=== PATIENT | female | born 1950 | race Caucasian/White ===

== ENCOUNTER → 2016-06-01 | Outpatient (CLI) | payer OTHER ==
--- NOTE | 2016-06-02 07:30 | MAMMOGRAPHY REPORT ---
BILATERAL DIGITAL SCREENING MAMMOGRAM WITH CAD: 06/01/2016 CLINICAL HISTORY: Routine screening. Patient has no complaints. TECHNIQUE: Current study was also evaluated with a Computer Aided Detection (CAD) system. Bilatera l CC and MLO views were obtained. COMPARISON: Comparison is made to exams dated: 05/31/2015 mammogram, 05/29/2014 mammogram, 05/28/2013 m ammogram, 05/27/2012 mammogram, 05/26/2011 mammogram, and 05/20/2010 mammogram - [facility]. BREAST COMPOSITION: There are scattered areas of fibroglandular density in both breasts. FINDINGS: No suspicious masses, calcifications, or areas of architectural distortion are noted in e ither breast. There has been no significant interval change compared to prior exams. IMPRESSION: ACR BI-RADS CATEGORY 1: NEGATIVE There is no mammographic evidence of malignancy. A 1 year screening mammogram is recommended. The p atient will receive written notification of the results. Approximately 10% of breast cancers are not detected with mammography. A negative mammographic repor t should not delay biopsy if a clinically suggestive mass is present. Becky Tuttle M.D. /:06/01/2016 15:11:56 Automobile Designer: Vi Munson, [facility] letter sent: Normal /2 BI-RADS Code: ACR BI-RADS Category 1: Negative
== END | disposition home or self-care (01) ==
LOC: C.MAMM 12:43
PROVIDERS: ATTEND Family Medicine
DX: Z12.31 Encounter for screening mammogram for malignant neoplasm of breast (principal)

== ENCOUNTER → 2017-01-08 | Outpatient (CLI) | payer OTHER ==
[~2017-01-08] MED LIST: ASPI81TA28 PO; CALC600T9 PO; GLUCTAB7 PO; LEVO112T4 PO; MOME100A INH; NAPR1TAB9 PO
--- NOTE | 2017-01-08 09:49 | DIAGNOSTIC IMAGING REPORT ---
LEFT KNEE INCLUDING BILATERAL STANDING AP VIEWS (4 VIEWS) CLINICAL HISTORY: LEFT KNEE PAIN COMPARISON: 11/08/2015 DISCUSSION: There are progressive osteoarthritic changes involving the left knee with progressive medial joint space narrowing and subchondral sclerosis. There are prominent dorsal patellar spurs. No acute fractures are visualized. IMPRESSION: 1. No acute fractures 2. Progressive osteoarthritic changes involving the left knee Electronically signed by: Valdez Nieves M.D. 01/08/2017 9:47 AM Dictated Date/Time: 01/08/2017 9:46 AM
== END | disposition home or self-care (01) ==
LOC: C.RDSM 09:45
PROVIDERS: ATTEND Physician Assistant
DX: M25.562 Pain in left knee (principal)

== ENCOUNTER 2017-03-14 07:55 | Inpatient (IN) | payer OTHER ==
[2017-02-12 10:32] VITALS: Ht 147.3 cm; Wt 63.1 kg
--- NOTE | 2017-02-12 11:05 | PAT Medication Instructions ---
Service Date Feb 12, 2017. Current Home Medication List Aspirin (Aspirin Ec), 81 MG PO QAM Calcium Carbonate-Vitamin D (Calcium + D), 1 TAB PO QAM Degcdjqlcrn-Zvqtyjgoxdb-Vfa C- (Glucosamine Chondroitin), 2 TAB PO QAM Levothyroxine Sodium (Levothyroxine Sodium), 1 TAB PO QAM Mometasone Furoate-Formoterol (Dulera 100/5 Mcg), 2 PUFFS INH BID Naproxen (Aleve), 220 MG PO PRN Medication Instructions For Your Scheduled Surgery - Check with surgeon for instructions: Naproxen (Aleve), 220 MG PO PRN - Hold the following medications 2 weeks prior to surgery: Thlnxgejqfe-Dzoadpxxoph-Bij C- (Glucosamine Chondroitin), 2 TAB PO QAM - Hold the following medications the morning of surgery: Calcium Carbonate-Vitamin D (Calcium + D), 1 TAB PO QAM - Take the following medications the morning of surgery with a sip of water: Mometasone Furoate-Formoterol (Dulera 100/5 Mcg), 2 PUFFS INH BID Levothyroxine Sodium (Levothyroxine Sodium), 1 TAB PO QAM Aspirin (Aspirin Ec), 81 MG PO QAM (okay to continue per surgeon) - Take the following medications as scheduled the night before surgery: Mometasone Furoate-Formoterol (Dulera 100/5 Mcg), 2 PUFFS INH BID If you have any questions please call us at [phone] or [phone] or [phone]
[2017-02-12 11:46] LABS: BASO % 0.5 %; BASO ABS # 0.04 K/uL (0-0.2); COMPLETE YES; HEMATOCRIT 40.2 % (37-47); IG% 0.2 %; LYMPH % 25.3 %; MEAN CELL VOLUME 92.6 fL (80-100); MEAN CORPUSCULAR HEMOGLOBIN 31.8 pg (25-34); MEAN CORPUSCULAR HGB CONC 34.3 g/dl (32-36); MEAN PLATELET VOLUME 8.7 fL (7.4-10.4); MONO % 6.4 %; NEUT % 63.6 %; PLATELET COUNT 225 K/uL (130-400); RED BLOOD COUNT 4.34 M/uL (4.2-5.4); WHITE BLOOD COUNT 8.71 K/uL (4.8-10.8)
[2017-02-12 11:50] LABS: URINE APPEARANCE CLEAR (CLEAR); URINE BILIRUBIN NEG (NEG); URINE COLOR YELLOW; URINE NITRITE NEG (NEG); URINE SPECIFIC GRAVITY 1.022 (1.000-1.030); UROBILINOGEN NEG (NEG)
[2017-02-12 11:51] LABS: MANUAL MICROSCOPIC REQUIRED? NO; REVIEW REQ? NO
[2017-02-12 11:57] LABS: PARTIAL THROMBOPLASTIN RATIO 1.1; PROTHROMBIN TIME (PATIENT) 10.8 SECONDS (9.0-12.0)
[2017-02-12 12:03] LABS: BUN/CREATININE RATIO 18.9 (10-20); CALCIUM 9.9 mg/dl (8.5-10.1); CREATININE 0.76 mg/dl (0.60-1.20); POTASSIUM 4.2 mmol/L (3.5-5.1)
--- NOTE | 2017-02-12 12:18 | DIAGNOSTIC IMAGING REPORT ---
CHEST 2 VIEWS ROUTINE HISTORY: Preop. COMPARISON: None. FINDINGS: The lungs are clear. Cardiac silhouette is normal in size. No pleural effusions. No pneumothorax. IMPRESSION: No acute process. Electronically signed by: Antione Manzo M.D. 02/12/2017 12:17 PM Dictated Date/Time: 02/12/2017 12:16 PM
--- NOTE | 2017-02-26 07:49 | HISTORY & PHYSICAL EXAMINATION ---
DATE OF ADMISSION: 03/07/2017 CHIEF COMPLAINT: Left knee pain. HISTORY OF PRESENT ILLNESS: This 66-year-old white female presents with her for evaluation of her left knee. She has had left knee pain for several years. It has become worse with time. It is currently affecting her ADLs. It is worse with weightbearing. She elects to proceed with left total knee arthroplasty in hopes of alleviating her pain. She has tried oral anti-inflammatories, cortisone injections, viscosupplementation, activity modification, and oral pain medications without relief. Preoperative imaging has been obtained. She denies any loss of motion. PAST MEDICAL HISTORY: Significant for asthma, diabetes, hypothyroidism and osteoarthritis. PAST SURGICAL HISTORY: D&C, tubal ligation, colonoscopy. ALLERGIES: KNOWN ALLERGY TO SULFA DRUGS AND PROCHLORPERAZINE. CURRENT MEDICATIONS: Glucosamine, calcium, aspirin 81 mg daily, Dulera inhaler, Synthroid 112 mcg daily. FAMILY HISTORY: Noncontributory. SOCIAL HISTORY: The patient is . Retired. No tobacco use, no ETOH use. REVIEW OF SYSTEMS: Significant for above stated conditions, otherwise unremarkable. PHYSICAL EXAMINATION: GENERAL: Well-developed, well-nourished middle aged white female in no acute distress. Sitting on a bed. Alert and oriented. SKIN: Warm and dry with good turgor. No rashes or lesions. No ecchymosis or erythema. No intraarticular effusion. HEENT: Normocephalic, atraumatic. Eyes PERRLA, EOMI. Nares patent bilaterally without turbinate enlargement. Oropharynx without erythema or exudate. No lesions noted. Uvula midline. Oral mucosa moist. Fair dentition. Dental fillings and dental caps are noted. HEART: RRR, soft systolic ejection murmur noted at the left sternal border. No gallops or rubs. LUNGS: Clear to auscultation bilaterally. No crackles, rhonchi or wheezing. Good air movement. ABDOMEN: Mildly obese. Bowel sounds present x4, soft, nontender. No organomegaly. No masses. MUSCULOSKELETAL: Left knee evaluation reveals no intra-articular effusion. No redness or warmth. Full terminal extension. Flexion is greater than 100 degrees. Strength is 5/5 with fair quad tone. No discomfort with palpation over the lateral joint line. She has focal discomfort with palpation over the medial joint line. No peripatellar discomfort today. No crepitus with motion. Stable collateral ligaments. Varus alignment. Intact motor function to the ankle. NEUROLOGIC: Cranial nerves II through XII are intact. Gross sensation is intact across the lower extremities by soft touch. Peripheral pulses are 2+. LABORATORY DATA: Radiographic images previously obtained shows medial joint space narrowing. Periarticular osteophytes, subchondral sclerosis, and varus alignment are noted. She is getting some lateral subluxation. IMPRESSION: Left knee end-stage degenerative joint disease. PLAN: Informed written consent to proceed with total knee arthroplasty has already been obtained. Postoperative prescriptions for Percocet and Coumadin will be provided at discharge from the hospital. Anticipate discharge to home with outpatient PT. She will make arrangements. She already has a cane and walker. She and her frequently travel to the [facility] and [place] and understand that she will not be able to travel any long distance for at least 8 weeks. Preoperative lab work, EKG, and chest x-ray have been ordered. Medical clearance has been requested from her PCP, Dr. Garces.
[~2017-03-14] VITALS: Ht 147.3 cm; Wt 63.1 kg
[2017-03-14] VITALS (7 sets, daily range): BP systolic 99–146; BP diastolic 64–88; PULSE 67–88; TEMP 36.5–37.2; O2SAT 93–100
[~2017-03-14 07:55] MED LIST changes: +BUPIVACAINE 0.25% 30 ML VIAL ONE; +BUPIVACAINE 0.5 % 5 MG/1 ML PF 10ML VIAL ONE; +CEFAZOLIN 2000MG IV PUSH 10 ML IV SCH; +LACTATED RINGER'S 1000ML 1,000 ML IV SCH; +LACTATED RINGER'S 1000ML 500 ML IV ONE; +LACTATED RINGER'S 1000ML IV SCH; +ROPIVACAINE 5MG/ML 30 ML 150 MG, BUPIVACAINE/EPINEPHR 0.5% MPF 30 ML, KETOROLAC TROMETH... INFIL SCH; +TRANEXAMIC ACID INJ 1,000 MG in SYRINGE 0 ML IV SCH
--- NOTE | 2017-03-14 08:27 | History & Physical Bridge Note ---
H&P Re-Evaluation Bridge Note: I have examined the patient, reviewed the History & Physical and in the interval since the performance of the History & Physical I have noted the following changes of clinical significance: consent reviewed/obtained.No changes noted
[2017-03-14] MEDS ORDERED: ONDANSETRON INJ 2 MG/ML 2 ML VIAL IV PRN ×2 (08:45→12:30)
[2017-03-14] MEDS ORDERED: EpHEDrine SULFATE INJ 50 MG/ML AMP IV PRN (08:45)
[2017-03-14] MEDS ORDERED: PHENYLEPHRINE 100MCG/ML 5ML SYR IV PRN (08:45)
[2017-03-14] MEDS ORDERED: FENTANYL CITRATE INJ 50 MCG/1 ML 2 ML VIAL IV PRN (08:45)
[2017-03-14] MEDS ORDERED: ATROPINE SULFATE 0.1 MG/ML 5ML SYR IV PRN (08:45)
[2017-03-14] MEDS ORDERED: HYDROmorphone INJ 1 MG/ML SYR IV PRN (08:45)
[2017-03-14] MEDS ORDERED: LABETALOL HCL IV 5 MG/ML 20ML IV PRN (08:45)
[2017-03-14] MEDS ORDERED: PROPOFOL IV EMULSION 10 MG/ML 20 ML VIAL IV ONE (09:18)
[2017-03-14] MEDS ORDERED: LIDOCAINE HCL 2% 2 ML VIAL (20MG/ML) ONE (09:18)
[2017-03-14] MEDS ORDERED: FENTANYL CITRATE INJ 50 MCG/1 ML 2 ML VIAL ONE (09:19)
[2017-03-14] MEDS ORDERED: MIDAZOLAM HCL 1 MG/ML 2ML VIAL ONE (09:19)
[2017-03-14] MEDS ORDERED: ORTHO JOINT ANESTHETIC ONE (10:28)
[2017-03-14] MEDS ORDERED: POVIDONE-IODINE OP SOLN 30 ML BTL ONE (10:28)
[2017-03-14] MEDS ORDERED: ONDANSETRON INJ 2 MG/ML 2 ML VIAL ONE (11:04)
--- NOTE | 2017-03-14 12:08 | [facility] Post Operative Brief Note ---
Immediate Operative Summary Operative Date Mar 14, 2017. Pre-Operative Diagnosis Left Knee End-Stage Degenerative Joint Disease Post-Operative Diagnosis Left Knee End-Stage Degenerative Joint Disease Procedure(s) Performed Left Total Knee Arthroplasty Surgeon Dr. Ochoa Farrowing Worker Surgeon(s) FELICIANO Valentine Estimated Blood Loss 50cc Findings severe medial disease Fluids (cc crystalloids) 1500cc Specimens A. Left Knee Bone and Tissue Drains none Anesthesia spinal/block Complication(s) None Disposition Recovery Room / PACU
[2017-03-14] MEDS ORDERED: ACETAMINOPHEN IV 100 ML IV PRN (12:30)
[2017-03-14] MEDS ORDERED: METOCLOPRAMIDE HCL INJ 5 MG/ML 2 ML VIAL IV PRN (12:30)
[2017-03-14] MEDS ORDERED: ALUMINUM/MAGNESIUM/SIMETH (MAALOX MAX) 30 ML UDC PO PRN (12:30)
[2017-03-14] MEDS ORDERED: MoRPHine SULFATE 2 MG/ML CARP IV PRN (12:30)
[2017-03-14] MEDS ORDERED: ACETAMINOPHEN 325 MG TAB PO PRN (12:30)
[2017-03-14] MEDS ORDERED: OXYCODONE HCL IR 5 MG TAB (IMMEDIATE RELEASE) PO PRN (12:30)
[2017-03-14] MEDS ORDERED: DiphenhydrAMINE HCL 50 MG/ML VIAL IV PRN (12:30)
[2017-03-14] MEDS ORDERED: BISACODYL 10 MG SUPP PR PRN (12:30)
[2017-03-14] MEDS ORDERED: MAGNESIUM HYDROXIDE SUSP 30 ML UDC PO PRN (12:30)
--- NOTE | 2017-03-14 12:40 | Anesthesiology Progress Note ---
Anesthesia Post Op Note Date & Time Mar 14, 2017 at 12:40 Vital Signs Pain Intensity: 0 Vital Signs Past 12 Hours Date Time Temp Pulse Resp B/P (MAP) Pulse Ox O2 Delivery O2 Flow Rate FiO2 03/14/17 12:30 63 12 115/64 100 Nasal Cannula 2 03/14/17 12:20 76 22 94/69 (72) 96 Nasal Cannula 2 03/14/17 12:10 36.6 82 14 102/60 95 Nasal Cannula 2 03/14/17 08:45 36.8 81 18 146/72 100 Room Air Notes Mental Status: alert / awake / arousable, participated in evaluation Pt Amnestic to Procedure: Yes Nausea / Vomiting: adequately controlled Pain: adequately controlled Airway Patency, RR, SpO2: stable & adequate BP & HR: stable & adequate Hydration State: stable & adequate Anesthetic Complications: no major complications apparent Awake, doing well. Pain controlled. VSS.
--- NOTE | 2017-03-14 12:43 | DIAGNOSTIC IMAGING REPORT ---
LEFT KNEE 2 VIEWS History: Left total knee arthroplasty. Degenerative arthritis. Postop. FINDINGS: The patient is status post a left total knee arthroplasty. The hardware is intact. No fracture or dislocation. Skin adair are in place. IMPRESSION: Left total knee arthroplasty. No evidence for hardware complication. Electronically signed by: Antione Manzo M.D. 03/14/2017 12:42 PM Dictated Date/Time: 03/14/2017 12:41 PM
--- NOTE | 2017-03-14 12:45 | OPERATIVE REPORT ---
DATE OF OPERATION: 03/14/2017 SURGEON: Ramos Ochoa MD MANUFACTURING CONTROLS ENGINEER: Guanaco Henriquez PA-C. No resident or fellow available. PREOPERATIVE DIAGNOSIS: Medial osteoarthritis with varus deformity, left knee. POSTOPERATIVE DIAGNOSIS: Same. OPERATION PERFORMED: Cemented left total knee replacement. PERIOPERATIVE SITUATION: Medically cleared female with intractable knee pain has failed conservative management. X-rays revealed marked medial joint space narrowing, varus deformity, no major flexion contracture, and marginal osteophytes tricompartmentally. DESCRIPTION OF PROCEDURE: After the patient appropriately identified, site verified, consent verified, 2 grams of Ancef confirmed as being given. The left lower extremity was prepped and draped in usual routine fashion. The tourniquet inflated to 300 mmHg after exsanguination of limb with a rubber Esmarch bandage. Total tourniquet time was 42 minutes. Midline exposure was utilized. Parapatellar arthrotomy performed. Synovectomy completed, osteophytes resected. Grade 4 disease noted medially. Marginal osteophytes noted tricompartmentally. Patellofemoral joint had grade 4 disease in the medial trochlea. The distal femur was then entered and a 12-mm resection made at 6 degrees of valgus. The proximal tibia delivered in the wound. Soft tissue excised including the remaining meniscal remnants and 4 mm resected. The extension gap was excellent. The femur was sized to a size 2 and an appropriate cutting block applied and the anterior and posterior condylar and chamfer cuts made. The flexion gap was excellent. Two syringes of the Orthomix were injected into the posterior aspect of the knee. Care taken to avoid the vessels and the peroneal nerve. The wound was then irrigated. The size 2 box cut, then applied, positioned well and the box cut made and the size 2 trial fit well. The tibia was then subluxated anteriorly and the tibia broached and reamed and the size 2 fit well covered the tibia nicely. Stability was best with the 12.5 spacer. The patella was sized to between the 31 and the 35. It was elected to go to the larger one. The seating holes made and minimal resection made of the patella since it was quite small. We cut up from a roughly 20 to a roughly 15. The seating holes were then made and the trial tracked well. All trial elements were then removed. The wound was injected with Orthomix and then irrigated with Betadine and Pulsavac and the permanent cemented into position. After 12 minutes, the tourniquet deflated. Minor bleeding points controlled with electrocautery. After 14 minutes the knee flexed, trial spacer removed and the permanent spacer seated. The knee was excellently stable and had full extension. There was no instability in mid range areas. The wound was irrigated one final time with the Pulsavac and Betadine and then closed with the knee at about 40 degrees of flexion using #1 Ethibond, #1 Vicryl, 2-0 Vicryl and stainless steel clips. Appropriate soft tissue dressing applied. ESTIMATED BLOOD LOSS: 50 mL CRYSTALLOID: 1500 mL SUMMARY OF IMPLANTS: Size 2 posterior cruciate substituting left femur, size 2 rotating tibial platform tray MBT keel, oval-domed 3 peg patella size 35, tibial insert rotating platform posterior cruciate stabilized matching the femur sized 12.5 mm. Two bags of Palacos G cement. DVT prophylaxis per protocol. I attest to the content of the Intraoperative Record and any orders documented therein. Any exception s are noted below.
[2017-03-14] MEDS ORDERED: OXYC-57 PO (13:32)
[2017-03-14] MEDS ORDERED: WARF2TAB PO (13:32)
--- NOTE | 2017-03-14 13:38 | PROGRESS NOTE ---
DATE: 03/14/2017 SUBJECTIVE: Postop check status post left total knee replacement. The patient is doing well, has no chest pain, shortness of breath, fever, chills, nausea, vomiting or headache. OBJECTIVE: Vital signs are stable. She is afebrile. Postop x-rays look excellent. ASSESSMENT: Doing well. Continue with care pathway. Of note neurovascular check is wearing off nicely with some active ankle and toe extension.
[2017-03-14] MEDS ORDERED: NURSING VERBAL MED ORDER ONE ×2 (14:45→20:00)
[2017-03-14] MEDS ORDERED: D5W AND 1/2NSS + 20MEQ KCL 1,000 ML IV SCH (15:00)
[2017-03-14] MEDS: KETOROLAC TROMETHAMINE 30 MG/ML VIAL IV. SCH ×2 (15:51→23:01)
[2017-03-14] MEDS ORDERED: WARFARIN SOD 5 MG TAB PO ONE (16:00)
[2017-03-14] MEDS ORDERED: DULERA: ORDER AWAITING ACTION SCH (16:00)
[2017-03-14] MEDS ORDERED: TRANEXAMIC ACID INJ 1,000 MG in SODIUM CHLORIDE 0.9% 100ML 100 ML IV SCH (17:00)
[2017-03-14] MEDS: FERROUS GLUCONATE 324 MG TAB PO SCH (18:00)
[2017-03-14] MEDS: CEFAZOLIN IV 1,000 MG in SYRINGE 0 ML IV SCH (20:17)
[2017-03-14] MEDS: DOCUSATE SODIUM 100 MG CAP PO SCH (20:19)
[2017-03-14] MEDS: MOMETASONE/FORMOTEROL (DULERA) INH INH SCH (20:51)
[2017-03-15 03:10] VITALS: BP 99/60; PULSE 78; TEMP 37.1; O2SAT 93
[2017-03-15] MEDS: KETOROLAC TROMETHAMINE 30 MG/ML VIAL IV. SCH ×2 (03:49→10:17)
[2017-03-15] MEDS: CEFAZOLIN IV 1,000 MG in SYRINGE 0 ML IV SCH (03:50)
[2017-03-15] MEDS ORDERED: LEVOTHYROXINE 112 MCG TAB PO SCH (06:00)
[2017-03-15 06:20] LABS: HEMATOCRIT 34.8 % (37-47); INR 1.1 (0.9-1.1); MEAN CELL VOLUME 92.8 fL (80-100); MEAN CORPUSCULAR HEMOGLOBIN 31.2 pg (25-34); MEAN CORPUSCULAR HGB CONC 33.6 g/dl (32-36); MEAN PLATELET VOLUME 8.8 fL (7.4-10.4); PLATELET COUNT 187 K/uL (130-400); PROTHROMBIN TIME (PATIENT) 11.8 SECONDS (9.0-12.0); RED BLOOD COUNT 3.75 M/uL (4.2-5.4); WHITE BLOOD COUNT 16.32 K/uL (4.8-10.8)
[2017-03-15 06:51] VITALS: BP 115/62; PULSE 80; TEMP 36.6; O2SAT 97
[2017-03-15 06:51] LABS: BUN/CREATININE RATIO 20.6 (10-20); CALCIUM 8.5 mg/dl (8.5-10.1); CREATININE 0.79 mg/dl (0.60-1.20); POTASSIUM 4.2 mmol/L (3.5-5.1)
--- NOTE | 2017-03-15 07:07 | PROGRESS NOTE ---
DATE: 03/15/2017 SUBJECTIVE: Status post left total knee replacement. The patient is doing well. Denies chest pain, shortness of breath, fever, chills, nausea, vomiting or headache. OBJECTIVE: Vital signs are stable. She is afebrile. LABORATORY DATA: Hematocrit stable in the mid 30s. Electrolytes pending. INR is 1.1. Wound dressing clean, dry and intact. Calves nontender abdomen, nontender. Can do a straight leg raise. ASSESSMENT: Doing well status post left total knee replacement. PLAN: Will discharge today after PT, OT. Discharge on 4 mg Coumadin.
--- NOTE | 2017-03-15 07:09 | DISCHARGE SUMMARY ---
CHIEF COMPLAINT: Left knee pain. HISTORY OF PRESENT ILLNESS: The patient admitted for elective left total knee replacement. She is doing well. She has no major issues. She is ambulatory. Her pain is well managed. PAST MEDICAL HISTORY: Remarkable for asthma, diabetes, hyperthyroidism, osteoarthritis. PAST SURGICAL HISTORY: Remarkable for D&C, tubal ligation and colonoscopy. ALLERGIES: SULFA AND PROCHLORPERAZINE. PREADMISSION MEDICATIONS: Include glucosamine, calcium, aspirin 81 mg daily, Dulera inhaler, Synthroid. She will continue all meds, add p.r.n. Percocet, for prescription medication see script. She is also to take Coumadin to keep INR 1.8-2.2 FAMILY HISTORY: Noncontributory. SOCIAL HISTORY: Reveals she is , retired. No tobacco or alcohol use. REVIEW OF SYSTEMS: Noncontributory. ASSESSMENT: Doing well status post left total knee replacement. Plan is to discharge on 4 mg of Coumadin. Check INR on Sunday. Follow up in 2 weeks for staple removal.
[2017-03-15] MEDS ORDERED: DEXAMETHASONE INJ 10 MG in SYRINGE 0 ML IV ONE (07:30)
[2017-03-15] MEDS ORDERED: WARF2TAB PO (08:42)
[2017-03-15] MEDS: MOMETASONE/FORMOTEROL (DULERA) INH INH SCH (08:44)
[2017-03-15] MEDS: FERROUS GLUCONATE 324 MG TAB PO SCH ×2 (08:44→12:24)
[2017-03-15] MEDS: DOCUSATE SODIUM 100 MG CAP PO SCH (08:45)
--- NOTE | 2017-03-15 08:47 | Discharge Instructions ---
Discharge Instructions Date of Service Mar 14, 2017. Admission Reason for Admission: Left Knee Degenerative Joint Disease Discharge Discharge Diagnosis / Problem: left knee s/p total knee replacement Discharge Goals Goal(s): Decrease discomfort, Improve function, Increase independence Activity Recommendations Activity Limitations: as noted below Lifting Limitations: gradually increase as tolerated Exercise/Sports Limitations: until after follow-up appointment Shower/Bathe: keep incision dry Driving or Machine Use: No driving until cleared by Dr. Ochoa Weightbearing Status: Left weightbearing (as tolerated) . Instructions / Follow-Up Instructions / Follow-Up New Medicine: * You will likely be taking one or more of these medications: 1. Percocet - Take, as directed, when you need it, every four to six hours to control your pain. 2. Coumadin - Thins your blood to lessen the chance of forming a blood clot. The dose of this is different for each person and is based on your blood tests that are done twice a week. * The most common side effects of pain medicine and iron are nausea and constipation. If nausea or constipation is too much of a problem or if you have any questions about your new medicines or doses, call [facility] at . We will try to help you manage these issues. VERY IMPORTANT TO READ AND REVIEW" Blood Clots and Blood Thinning Medicine: * You are given Coumadin during the immediate post-operative period to lessen the risk of blood clots forming in your legs and/or lungs. Coumadin is usually given for six weeks after surgery. * The prescription is for 2 mg tablets. At discharge, you should understand your dose and take it all at the same time every day, preferably after dinner. * You need to get your blood checked 1 - 2 times per week for six weeks or as directed. * If your dose needs to change, we will call you. Do not take your medication on the day of the blood test until we call you. Pain: * The immediate post-operative period after knee replacement surgery is often quite painful. * You are given a prescription for pain medicine. You should take it, as directed, when you need it, especially before physical therapy and before going to bed. Pain that interferes with sleep is very common and can last several months. * You will likely need pain medicine for the first four to six weeks. It will not stop all of the pain. The pain will lessen and as you feel better, you may change to milder pain medicine such as Tylenol. * The most common side effects of pain medicine are nausea and constipation, so don't take more than you need. Physical Therapy: * You will have physical therapy two or three times each week for four to six weeks after your surgery in order to regain your knee range of motion and to retrain your knee to work properly. * It is just as important to make sure you are getting your knee perfectly straight as it is to regain your knee bend. * Taking a pain pill an hour before therapy can help you have a more productive and comfortable therapy session if needed. Home Exercise: * You were shown a series of exercises (heel props, heel slides, etc.) in the hospital. Do these exercises three to four times each day including the exercises you were shown in physical therapy. Walking: * Get up and walk several times each day. For the first four weeks, try not to stand or walk for more than one hour at a time. If you do stand or walk for more than one hour, you will not hurt anything, but your knee and leg will likely swell. * As you feel comfortable, you may change from the walker or crutches to a cane and then to independent walking. SELF CARE INSTRUCTIONS AFTER TOTAL KNEE REPLACEMENT A. You may need to continue a physical therapy program after discharge from the hospital. There are several options available to you. Your doctor will assist you in selecting the best one for you. 1. An out-patient facility 2 to 3 times a week for therapy or home therapy. 2. Continue working on all exercises taught to you in the hospital. Your goals should be to increase bending of your knee to 90 degrees and beyond and to fully straighten your knee. B. You may progress at your own pace from walking with a walker or crutches to a cane; then to no assistive devices. C. Make walking a part of your daily routine. Be up as much as comfortable with rest periods throughout the day. Rest with leg elevation is very important. Use the ice wrap frequently for the first 3-4 weeks. D. There are no restrictions on activities. You may ride in a car, shop, participate in decorator lighting fixtures and all social activities. E. Wear the long elastic stockings (YOANA hose) 20 hours a day for six weeks after surgery. They can be removed several times a day for laundering and for a shower. F. Do not place a pillow behind your knee when resting. A pillow at your ankle is okay. VERY IMPORTANT TO READ AND REVIEW A. Take Coumadin, Aspirin or Lovenox (blood thinning medications) as directed by your doctor. If on Coumadin, have a pro-time (blood test) drawn according to your doctor's instructions. This will tell the doctor how well the Coumadin is thinning your blood. 1. YOU WILL BE GIVEN AN ORDER AT DISCHARGE FOR PT/INR (BLOOD WORK). PLEASE HAVE THIS DONE INSTRUCTED. PLEASE CALL OUR OFFICE AFTER YOUR BLOODWORK IS COMPLETE SO WE CAN TRACK YOUR RESULTS. IF YOU ARE GOING TO OUTPATIENT PHYSICAL THERAPY, YOU WILL NEED TO GO TO OUTPATIENT TESTING TO HAVE IT DRAWN. B. There are a few signs you need to watch for after you are home. Call [facility] if you notice any of the followin. Increased severe knee pain. Some pain is expected especially when you exercise. 2. Increased swelling in your leg or knee; pain or swelling of the calf muscle in either lower leg. 3. Any fluid drainage from the incision. 4. Shortness of breath or chest pain. C. Please call [facility] at if you have any concerns or questions about your operation or recovery. The doctor or his nurse will return your call promptly. D. You must take antibiotics before dental work, bladder, bowel or other surgery. Call the office to obtain a prescription at least 2 days prior to your appointment. * CALL IF INCREASED PAIN, REDNESS, DRAINAGE OR FEVER GREATER THAT 101. * Sutures should be removed 12-14 days after surgery unless you are on chronic steriods, then it will be 14-18 days after surgery. Call your doctor if: * Temperature above 101 degrees F. * Pain not relieved by pain medicine ordered. * Increased drainage or redness from incision. * Notify your doctor with any questions or concerns. Current Hospital Diet Patient's current hospital diet: Regular Diet Discharge Diet Recommended Diet: Regular Diet Procedures Procedures Performed: Left Total Knee Arthroplasty Pending Studies Studies pending at discharge: no Medical Emergencies . Who to Call and When: Medical Emergencies: If at any time you feel your situation is an emergency, please call 911 immediately. . Non-Emergent Contact Non-Emergency issues call your: Primary Care Provider, Surgeon Call Non-Emergent contact if: temperature is above 101, wound has increased drainage, wound has increased redness, wound has increased pain, you have any medication questions . "Provider Documentation" section prepared by Guanaco Henriquez PA-C. . VTE Core Measure Inpt VTE Proph given/why not?: Warfarin (Coumadin), T.E.D. Stockings, SCD's [place] Drug Monitoring Program Search Results: no issues identified
[2017-03-15] MEDS ORDERED: MULTIVITAMIN TAB PO SCH (09:00)
[2017-03-15] MEDS ORDERED: ASPIRIN 81 MG ECTAB PO SCH (09:00)
[2017-03-15] MEDS ORDERED: PANTOprazole SOD 40 MG TAB PO SCH (09:00)
--- NOTE | 2017-03-15 09:05 | Anesthesiology Progress Note ---
Anesthesia Post Op Note Date & Time Mar 15, 2017 at 09:05 Vital Signs Pain Intensity: 0.0 Vital Signs Past 12 Hours Date Time Temp Pulse Resp B/P (MAP) Pulse Ox O2 Delivery O2 Flow Rate FiO2 03/15/17 06:51 36.6 80 18 115/62 (79) 97 Room Air 03/15/17 03:10 37.1 78 16 99/60 (73) 93 Room Air 03/15/17 00:07 Room Air 03/14/17 23:02 37.2 77 16 99/64 (76) 93 Room Air Notes Mental Status: alert / awake / arousable, participated in evaluation Pt Amnestic to Procedure: Yes Nausea / Vomiting: adequately controlled Pain: adequately controlled Airway Patency, RR, SpO2: stable & adequate BP & HR: stable & adequate Hydration State: stable & adequate Neuraxial Anesthesia: sensory block resolved Anesthetic Complications: no major complications apparent
[2017-03-15 10:54] VITALS: BP 115/62; PULSE 80; TEMP 36.6; O2SAT 97
[2017-03-15] MEDS ORDERED: WARFARIN SOD 5 MG TAB PO SCH (11:30)
--- NOTE | 2017-03-15 13:56 | [facility] Operative Report ---
Operative Report Operative Date Mar 14, 2017. Pre-Operative Diagnosis Left Knee End-Stage Degenerative Joint Disease Post-Operative Diagnosis Left Knee End-Stage Degenerative Joint Disease Procedure(s) Performed Left Total Knee Arthroplasty Surgeon Dr. Ochoa Latent Fingerprint Examiner Surgeon(s) FELICIANO Lane Estimated Blood Loss 50cc Findings Left knee DJD Fluids 1500cc Specimens A. Left Knee Bone and Tissue Drains none Anesthesia spinal/block Complication(s) None Disposition Recovery Room / PACU Indications This 66 year old white female presented to the office with complaints of Left knee pain that persisted despite activity modification, use of oral pain medication, and injection therapy. She elected to proceed with surgical intervention on the left knee. Preop imaging has been obtained. Description of Procedure Patient was administered a regional block and spinal anesthetic and then taken to the operating room where she was given sedation. She was prepped and draped in usual sterile fashion. Please see Dr. Ochoa's operative report for specifics of the procedure. I was present for the entire case from initial patient positioning through final wound closure. Assistance was provided in tissue traction, hemostasis, trial implant placement, final implant placement, and final wound closure. Patient was taken to the recovery room in satisfactory condition. I attest to the content of the Intraoperative Record and any orders documented therein. Any exceptions are noted below.
== END 2017-03-15 14:51 | disposition home or self-care (01) | DRG 470 ==
LOC: C.ACU 07:55 → C.3E 08:45 → ENRESERV 13:15
PROVIDERS: ADMIT Physical Medicine & Rehabilitation Sports Medicine; ATTEND Physical Medicine & Rehabilitation Sports Medicine
PROC: 0SRD0J9 Replacement of Left Knee Joint with Synthetic Substitute, Cemented, Open Approach (ICD-10-PCS; principal; 2017-03-14 10:45)
DX: M17.12 Unilateral primary osteoarthritis, left knee (principal); J45.909 Unspecified asthma, uncomplicated; E11.9 Type 2 diabetes mellitus without complications; E03.9 Hypothyroidism, unspecified; Z79.82 Long term (current) use of aspirin; Z79.899 Other long term (current) drug therapy; Z88.2 Allergy status to sulfonamides

== ENCOUNTER → 2017-05-14 | Outpatient (CLI) | payer OTHER ==
[~2017-05-14] MED LIST changes: -BUPIVACAINE 0.25% 30 ML VIAL ONE; -BUPIVACAINE 0.5 % 5 MG/1 ML PF 10ML VIAL ONE; -CEFAZOLIN 2000MG IV PUSH 10 ML IV SCH; -GLUCTAB7 PO; -LACTATED RINGER'S 1000ML 1,000 ML IV SCH; -LACTATED RINGER'S 1000ML 500 ML IV ONE; -LACTATED RINGER'S 1000ML IV SCH; -NAPR1TAB9 PO; +OXYC-57 PO; -ROPIVACAINE 5MG/ML 30 ML 150 MG, BUPIVACAINE/EPINEPHR 0.5% MPF 30 ML, KETOROLAC TROMETH... INFIL SCH; -TRANEXAMIC ACID INJ 1,000 MG in SYRINGE 0 ML IV SCH; +WARF2TAB PO
== END | disposition home or self-care (01) ==
LOC: C.RDSM 09:23
PROVIDERS: ATTEND Physical Medicine & Rehabilitation Sports Medicine
DX: Z96.652 Presence of left artificial knee joint (principal)

== ENCOUNTER → 2017-06-04 | Outpatient (CLI) | payer OTHER ==
--- NOTE | 2017-06-05 13:29 | MAMMOGRAPHY REPORT ---
BILATERAL DIGITAL SCREENING MAMMOGRAM TOMOSYNTHESIS WITH CAD: 06/04/2017 CLINICAL HISTORY: Routine screening. Patient has no complaints. TECHNIQUE: Breast tomosynthesis in addition to standard 2D mammography was performed. Current study was also evaluated with a Computer Aided Detection (CAD) system. COMPARISON: Comparison is made to exams dated: 06/01/2016 mammogram, 05/31/2015 mammogram, 05/29/2014 larry mogram, 05/28/2013 mammogram, 05/27/2012 mammogram, and 05/20/2010 mammogram - [facility]. BREAST COMPOSITION: There are scattered areas of fibroglandular density in both breasts. FINDINGS: A circumscribed subcentimeter mass in the upper outer middle one third of the left breast i s stable in size dating back to at least 05/18/2008, therefore likely benign. No suspicious mass, ar chitectural distortion or cluster of microcalcifications is seen. IMPRESSION: ACR BI-RADS CATEGORY 1: NEGATIVE There is no mammographic evidence of malignancy. A 1 year screening mammogram is recommended. The pa tient will receive written notification of the results. Approximately 10% of breast cancers are not detected with mammography. A negative mammographic report should not delay biopsy if a clinically suggestive mass is present. Joanna Hernandes M.D. ay/:06/04/2017 15:31:51 Cage Cashier: Vi LOVING(R)(M), [facility] letter sent: Normal 1/2 BI-RADS Code: ACR BI-RADS Category 1: Negative
== END | disposition home or self-care (01) ==
LOC: C.MAMM 12:08
PROVIDERS: ATTEND Family Medicine
DX: Z12.31 Encounter for screening mammogram for malignant neoplasm of breast (principal)

== ENCOUNTER → 2017-12-17 | Outpatient (CLI) | payer OTHER ==
[~2017-12-17] MED LIST changes: -OXYC-57 PO
== END | disposition home or self-care (01) ==
LOC: C.RDSM 10:15
PROVIDERS: ATTEND Physical Medicine & Rehabilitation Sports Medicine
DX: M17.0 Bilateral primary osteoarthritis of knee (principal)

== ENCOUNTER 2024-04-16 05:05 | Observation (INO) ==
--- NOTE | 2024-03-04 14:03 | PAT Medication Instructions ---
Medication Instructions Date of Service March 04, 2024 Home Medications Medication Instructions Recorded fluticasone 250 mcg-salmeterol 50 1 inh inhalation BID #180 ea 07/24/24 mcg/dose blistr powdr for inhalation (Wixela Inhub) levothyroxine 112 mcg capsule 112 mcg PO QAM fluticasone 250 mcg-salmeterol 50 mcg/dose blistr powdr for inhalation (Wixela Inhub) 1 inh inhalation BID famotidine 20 mg tablet 20 mg PO BID propylene glycol 0.6 % eye drops (Systane Complete) 1 drp ophthalmic (eye) BID cataracts amoxicillin 500 mg capsule 500 mg PO UD PRN dental procedures estradiol 0.01% (0.1 mg/gram) vaginal cream 1 applic vaginal UD nitrofurantoin monohydrate/macrocrystals 100 mg capsule 100 mg PO QPM Continue as directed amoxicillin 500 mg capsule 500 mg PO UD PRN dental procedures STOP taking 24 hours before surgery estradiol 0.01% (0.1 mg/gram) vaginal cream 1 applic vaginal UD Take morning of surgery With a small sip of water, OTHERWISE NOTHING TO EAT OR DRINK AFTER MIDNIGHT: levothyroxine 112 mcg capsule 112 mcg PO QAM fluticasone 250 mcg-salmeterol 50 mcg/dose blistr powdr for inhalation (Wixela Inhub) 1 inh inhalation BID famotidine 20 mg tablet 20 mg PO BID propylene glycol 0.6 % eye drops (Systane Complete) 1 drp ophthalmic (eye) BID cataracts Take evening before surgery fluticasone 250 mcg-salmeterol 50 mcg/dose blistr powdr for inhalation (Wixela Inhub) 1 inh inhalation BID famotidine 20 mg tablet 20 mg PO BID propylene glycol 0.6 % eye drops (Systane Complete) 1 drp ophthalmic (eye) BID cataracts nitrofurantoin monohydrate/macrocrystals 100 mg capsule 100 mg PO QPM Other Notes If you have any questions please call us at [phone] or [phone] or [phone] or [phone]
--- NOTE | 2024-03-10 12:31 | Anesthesiology Consultation ---
Date of Service March 10, 2024 Assessment & Plan (1) Encounter for pre-operative examination: - awaiting surgeon ordered medical clearance, Dr. Garces. - Patient requested pausing PAT visit to call her insurance regarding coverage for surgery. She advised that insurance company relayed it will likely be approved once submitted by the surgeon's office. Patient states that the surgeon's office advised everything would be submitted after their upcoming office visit with patient. I advised if she had further concern she could have testing done through her PCP or re-schedule. She expressed desire to proceed with PAT appointment and testing today given surgeon's order for testing faxed to our office for her visit today. Chart Review Chart Review: Pending: Refer to Additional Notes / Consult section and Patient seen in Pre Admission Testing Teaching & Discussion Pre-Anesthesia Teaching/Discussion Notes: Instructed NPO after midnight before surgery, except medications with 15 cc of water. Medication instructions provided according to the PAT guidelines. History Surgery Operation Date: 04/16/24 09:05 Proposed Procedures p Right Total Shoulder Arthroplasty - Ramos Ochoa MD Height/Weight Height: 4 ft 10.5 in Weight: 64.5 kg Allergies Allergy/AdvReac Type Severity Reaction Status Date / Time prochlorperazine Allergy Intermediate Difficulty Verified 03/05/24 11:15 Swallowing Sulfa (Sulfonamide Allergy Intermediate RASH Verified 03/05/24 11:15 Antibiotics) Medications Home Medications Medication Instructions Recorded Confirmed Last Taken levothyroxine 112 mcg capsule 112 mcg PO QAM 03/02/19 03/05/24 11/27/23 06:00 fluticasone 250 mcg-salmeterol 50 1 inh inhalation BID #180 ea 07/25/23 03/05/24 11/27/23 07:00 mcg/dose blistr powdr for inhalation (Wixela Inhub) famotidine 20 mg tablet 20 mg PO BID 11/13/23 03/05/24 11/27/23 07:00 propylene glycol 0.6 % eye drops 1 drp ophthalmic (eye) BID 11/27/23 03/05/24 11/26/23 21:00 (Systane Complete) cataracts amoxicillin 500 mg capsule 500 mg PO UD PRN dental procedures 03/03/24 03/05/24 Unknown estradiol 0.01% (0.1 mg/gram) 1 applic vaginal UD 03/03/24 03/05/24 Unknown vaginal cream nitrofurantoin 100 mg PO QPM 03/03/24 03/05/24 Unknown monohydrate/macrocrystals 100 mg capsule albuterol sulfate 90 mcg/actuation 2 puff inhalation Q4H PRN 03/05/24 03/05/24 Unknown aerosol inhaler (Ventolin HFA) Shortness Of Breath #1 inhaler Past Medical History Medical History (Updated 03/12/24 @ 14:03 by Kirti Sharma PA-C) Asthma controlled, stable per pt Cardiac murmur no locker room manager; no previous echo-pt states PCP did not recently detect murmur/none detected at PAT visit 03/10/24 Chronic cough attributed to asthma and acid reflux per pt-denies change or worsening Chronic rhinitis Esophageal reflux History of COVID-19 (2021) mild flu symptoms. no hospitalization. Hx of tinnitus no current issues Hypothyroidism Osteoarthritis Prediabetes no medications, diet controlled UTI (urinary tract infection) completed antibiotic 03/04, hx frequent uti's Patient denies h/o stroke, seizures, heart attack, heart failure, HTN, blood clots/DVTs or blood transfusions. Exercise / Class Metabolic Activity II 4-5 Yardwork/Stairs/Walk up hill (denies cehst discomfort or shortness of breath with one flight of stairs) Past Family History Family History Other No family history of adverse response to anesthesia Past Surgical History Surgical History History of colonoscopy History of dilatation and curettage History of left knee replacement History of oral surgery (2021) all upper teeth teeth removed History of tubal ligation History of wisdom tooth extraction Hx of bilateral cataract extraction (2021) Hx of esophagogastroduodenoscopy Past Anesthesia History No Hx of Anesthesia Complications and No Family Hx of Anesthesia Complications History of PONV No Hx of PONV and No Hx of Motion Sickness Social History Smoking Status: Never smoker Do You Dip or Chew Tobacco: No Hx Alcohol Use: No Hx Substance Use: No substance use type: does not use Review of Systems Patient denies chest pain, shortness of breath, dyspnea on exertion, snoring, witnessed apneas, fever, chills, wheezing, or palpitations. Physical Exam Vital Signs Vitals BP 108/64 P 64 TEMP 98.5 SP02 96% on RA RESP 18 Physical Patient resting comfortably in chair in no acute distress, alert and oriented, responding appropriately throughout visit Full cervical extension range of motion without pain TMD 3.5 finger breadths Mallampati Score 2 Dentition: full upper denture, denies chipped or loose teeth, caps/crowns, implants or bridges Lungs: normal respiratory effort. Good air movement, clear throughout to au scultation, no adventitious breath sounds Cardiac: regular rate and rhythm, no murmurs noted Carotid arteries: negative bruit bilat Lab Results Anesthesia Preop Results Results Anesthesia Widget: WBC 11.63 K/ul (4.8-10.8) H 03/10/24 Hgb 14.1 g/dl (12.0-16.0) 03/10/24 Hct 41.8 % (37.0-47.0) 03/10/24 Plt 255 K/uL (130-400) 03/10/24 Na 140 mmol/L (136-145) 03/10/24 K 3.8 mmol/L (3.5-5.1) 03/10/24 Cl 106 mmol/L (98-107) 03/10/24 CO2 28 mmol/L (21-32) 03/10/24 BUN 15 mg/dl (6-23) 03/10/24 Creat 0.73 mg/dl (0.6-1.2) 03/10/24 Glucose Level 114 mg/dl (70-99(Fasting)) H 03/10/24 PT 10.6 Seconds (9.0-12.0) 03/10/24 PTT 27 Seconds (21-31) 03/10/24 INR 1.0 (0.9-1.1) 03/10/24 Urine Color Yellow 03/10/24 Urine Appearance Clear (Clear) 03/10/24 Urine pH 5.5 (4.5-7.5) 03/10/24 Urine Specific [place] 1.019 (1.000-1.030) 03/10/24 Urine Protein Negative (Negative) 03/10/24 Urine Glucose (UA) Negative (Negative) 03/10/24 Urine Ketones Negative (Negative) 03/10/24 Urine Blood Negative (Negative) 03/10/24 Urine Nitrite Negative (Negative) 03/10/24 Urine Bilirubin Negative (Negative) 03/10/24 Urine Urobilinogen Negative (Negative) 03/10/24 Urine Leukocyte Esterase 1+ (Negative) H 03/10/24 Urine WBC (Auto) 0-5 /hpf (0-5) 03/10/24 Urine RBC (Auto) 0-2 /hpf (0-2) 03/10/24 Urine Hyaline Casts (Auto) 0-2 /lpf (0-2) 03/10/24 Urine Epithelial Cells (Auto) 3-5 /hpf (0-2) H 03/10/24 Urine Bacteria (Auto) None Seen (None Seen) 03/10/24 Blood Type O Positive 03/10/24 Antibody Screen NEGATIVE 03/10/24 Testing Electrocardiogram Date: 03/10/24 Sinus rhythm with sinus arrhythmia with frequent PVCs, rate [address] and T wave abnormality PVCs are now present vs 02/12/17 EKG Chest X-Ray Date: 03/10/24 No acute cardiopulmonary disease.
--- NOTE | 2024-04-16 05:19 | History & Physical Bridge Note ---
Date of Service April 16, 2024 History & Physical Bridge Note I have examined the patient, reviewed the History & Physical and in the interval since the performance of the History & Physical I have noted the following changes of clinical significance:consent and site verified. no changes noted
[2024-04-16] MEDS: LR 60ML/HR IV SCH (06:01)
[2024-04-16] MEDS: LR 15ML/HR IV SCH (06:01)
[2024-04-16] MEDS ORDERED: BUPIVACAINE 0.5 % 5 MG/1 ML PF 10ML VIAL ONE (06:23)
[2024-04-16] MEDS ORDERED: ONDANSETRON INJ 2 MG/ML 2 ML VIAL ONE (06:42)
[2024-04-16] MEDS ORDERED: PROPOFOL IV EMULSION 10 MG/ML 20 ML VIAL IV ONE (06:42)
[2024-04-16] MEDS ORDERED: LIDOCAINE 2% 2 ML VIAL/AMP(20MG/ML) INFIL ONE (06:42)
[2024-04-16] MEDS: TRANEXAMIC ACID 1,000 MG **IV Pre-op IV SCH (06:46)
[2024-04-16] MEDS ORDERED: MIDAZOLAM HCL 1 MG/ML 2ML VIAL ONE (06:48)
[2024-04-16] MEDS ORDERED: ALBUTEROL HFA 8 GM INHALER INH ONE (06:51)
[2024-04-16] MEDS ORDERED: ROCURONIUM BROMIDE 10 MG/ML 5 ML VIAL IV ONE (06:52)
[2024-04-16] MEDS ORDERED: fentaNYL citrate PF 100 MCG/2 ML VIAL ONE (06:53)
[2024-04-16] MEDS ORDERED: ePHEDrine sulfate 50 MG/ML AMP IV PRN (06:57)
[2024-04-16] MEDS ORDERED: HYDROmorphone INJ 1 MG/ML SYRINGE IV PRN ×2 (06:57→11:11)
[2024-04-16] MEDS ORDERED: fentaNYL citrate PF 100 MCG/2 ML VIAL IV PRN (06:57)
[2024-04-16] MEDS ORDERED: ATROPINE SULFATE 0.1 MG/ML 10ML SYR IV PRN (06:57)
[2024-04-16] MEDS: ceFAZolin 2000MG 2,000 MG/15 ML SYR IV SCH (07:01)
[2024-04-16] MEDS ORDERED: DEXAMETHASONE SOD INJ 4 MG/ML VIAL ONE (07:50)
[2024-04-16] MEDS ORDERED: SUGAMMADEX SODIUM 200 MG/2 ML VIAL IV ONE (07:51)
[2024-04-16] MEDS: THROMBIN FOR SOLN 20000 UNIT KIT ONE (08:44)
[2024-04-16] MEDS: TRANEXAMIC ACID 1,000 MG **IV Intra-op IV SCH (08:50)
--- NOTE | 2024-04-16 09:11 | Post Operative Brief Note ---
Immediate Post Op Note Date of Surgery April 16, 2024 Pre & Post Diagnosis Operation Date: 04/16/24 07:00 <No data on this case meets the specified criteria> Osteoarthritis right shoulder with loose body. Postop diagnosis same I identified the patient and participated in the time-out.: Yes Procedure Operation Date: 04/16/24 07:00 <No data on this case meets the specified criteria> Hybrid total shoulder replacement cemented glenoid press-fit humerus Surgeon Ramos Ochoa MD Yard Labor Supervisor Yohannes/Laurence kovacs Estimated Blood Loss 100 Findings Consistent with Post-Op Diagnosis Osteoarthritis relatively intact subscapularis and posterior rotator cuff Fluids See anesthesia report Complications None
--- NOTE | 2024-04-16 09:15 | Operative Report ---
Post Operative Report Pre & Post Diagnosis Operation Date: 04/16/24 07:00 <No data on this case meets the specified criteria> Osteoarthritis right shoulder with loose bodies pre and postop diagnosis same I identified the patient and participated in the time-out.: Yes Procedure Operation Date: 04/16/24 07:00 <No data on this case meets the specified criteria> Hybrid total shoulder replacement cemented glenoid press-fit humerus Surgeon Ramos Ochoa MD Trauma Coordinator Yohannes/Laurence kovacs Estimated Blood Loss 100 Findings Consistent with Post-Op Diagnosis Severe osteoarthritis multiple loose bodies rotator cuff thinning but intact Fluids See anesthesia report Specimens Bone pathology Drains None Complications None Description of Procedure After the patient was appropriate endophyte site verified consent verified the shoulder was examined revealing no instability she had forward flexion to 110 degrees abduction the same rotation belly to 20 degrees. She was carefully positioned and appropriately prepped and draped. An anterior approach to the shoulder was made to the deltopectoral interval of note she has no cephalic vein. Interval was open appropriate retractors placed the clavipectoral fascia preserved subscapularis was peeled off the tuberosity care was taken to coagulate the inferior humeral circumflex arteries and veins. Care was taken to protect the axillary nerve once this was peeled off was able to subluxate humerus head through the incision head was cut required 1 revision to get a little more retroversion then excellent exposure of the acetabulum was obtained serial rule out resection of all of the labrum was performed. Excellent acetabular exposure was obtained. The central peg hole was made after was sized to a 40 the superior and 2 inferior holes were then made. Excellent trial reduction was carried out. The permanent was then cemented in position of the wound was irrigated and soaked in Betadine cleaned out and then soaked in thrombin permanent cemented into position after 10 minutes everything was solid no major cement removal was required. Humerus was then and externally rotated into the wound appropriate for exposure was obtained serial broaching was carried out and a size 10 stem was able to be seated trial reduction with an eccentric 44 head 18 length was excellent. Trial implants were then removed the rotator cuff sutures were then placed with #2 FiberWire through the humerus and then were looped around the implant when it was finally impacted into close 1 proximal hole 1 central hole and 1 inferior hole the central hole had the inferior suture and the proximal suture through it. Area was irrigated 1 final time the permanent stem was then seated around the sutures and were appropriately tightened was finally impacted the the head was then impacted the arm was then reduced and then the subscapularis closed with the arm at roughly 30 degrees of abduction and neutral rotation this was then oversewn with the tag sutures that were placed. An excellent repair was obtained. The interval was left open. Wound was irrigated 1 final time and closed with 2-0 plain and stainless to clips appropriate dressing applied the patient was placed in a sling and swath. She was then transferred to the recovery room in satisfactory standing tolerated the procedure well. I attest to the content of the Intraoperative Record and any orders documented therein. Any exceptions are noted below.
[2024-04-16] MEDS ORDERED: VANCOMYCIN CONSULT ACTIVE PRN (09:16)
[2024-04-16] MEDS ORDERED: VANCOMYCIN HCL 1,250 MG in SODIUM CHLORIDE 0.9% 500 ML IV ONE (09:16)
--- NOTE | 2024-04-16 09:16 | Orthopedic Progress Note ---
Date of Service April 16, 2024 Subjective Patient underwent right total shoulder placement hybrid technique has done well to denies chest pain shortness of breath fever chills nausea vomiting headache. Vital signs are stable she is afebrile. Neurovascular check limited by block. X-ray pending. Family contacted. Results & Data Vital Signs (Past 12 Hours) Vital Signs Temp Pulse Resp BP Pulse Ox O2 Del Method 04/16/24 05:41 36.5 C 66 18 127/65 99 Room Air
--- NOTE | 2024-04-16 09:18 | Discharge Summary ---
Date of Service April 17, 2024 Admission HPI Per Admitting Provider Osteoarthritis right shoulder loose bodies Principal Diagnosis Osteoarthritis right shoulder loose bodies Discharge Data Allergies Allergy/AdvReac Type Severity Reaction Status Date / Time prochlorperazine Allergy Intermediate Difficulty Verified 04/16/24 05:50 Swallowing Sulfa (Sulfonamide Allergy Intermediate RASH Verified 04/16/24 05:50 Antibiotics) Vaccinations None Consultations None Procedures Performed Operation Date: 04/16/24 07:00 <No data on this case meets the specified criteria> Hybrid total shoulder replacement right shoulder Ordered Studies 04/16/24 05:00 US - OR guided needle placemen Routine Hospital Course (1) Status post replacement of right shoulder joint: Care plan for total shoulder replacement Total Time Total Time Spent Total Time Spent (In Minutes): 5 minutes Discharge Plan Discharge Items Patient Disposition: Home - Home Health Services Reason For Visit: Right Shoulder Osteoarthritis Discharge Diagnosis: Right shoulder s/p total shoulder replacement Condition on Discharge: Good Activity: Per Instructions section Lifting: Wait until after follow-up appointment Bathing: Keep incision dry Sexual Activity: Wait until after follow-up appointment Exercise/Sports: Wait until after follow-up appointment Driving/Machine Use: No driving until cleared by Dr. Ochoa Weightbearing: Full weightbearing Non-emergency contact: Surgeon Call non-emergency contact if: you have any medication questions, your pain is not controlled, your temperature is above 101, your wound has increased redness, your wound has increased drainage and your wound pain has increased Follow-up/Referrals: physical, therapy [Other] - 04/17/24 12:00 pm (at [facility]) Zion Garces MD [Primary Care Provider] - Essie Stanley PA-C [Physician Shade Bander] - 05/01/24 11:15 am Diet: Regular and Carb Consistent or DM2 Addtl Attending Provider Instructions: DIET: * Resume previous diet. MEDICATIONS: * Please take your prescriptions as instructed at your pre-op appointment and/or see medication discharge instructions listed above. * If concerns develop, call your physician's office at . SPECIAL CARE INSTRUCTIONS: * Ice/Elevate as instructed. * Keep dressing clean, dry, intact. * Your surgical extremity may be discolored due to prepping agents used on the skin. A bluish-green tint is a normal variant and should not cause alarm. Call your doctor at [phone] if: * Temperature above 101 degrees * Pain not relieved by pain medicine ordered * There is increased drainage or redness from any incision * You have any unanswered questions, problems or concerns. FOLLOW UP VISIT: * If not already scheduled, please call the office at to schedule a follow-up appointment. Pending Studies at Discharge: Yes Studies:: bone pathology Stand-Alone Forms: My [facility] [employer], Smoking Cessation Medications and DC Order Prescriptions: No Action fluticasone propion-salmeterol [Wixela Inhub] 250-50 mcg/dose blister with device 1 inh inhalation BID Qty: 180 3RF levothyroxine 112 mcg capsule 112 mcg PO QAM albuterol sulfate [Ventolin HFA] 90 mcg/actuation HFA aerosol inhaler 2 puff inhalation Q4H PRN (Reason: Shortness Of Breath) Qty: 1 3RF famotidine [Pepcid] 20 mg Tablet 20 mg PO BID Systane Complete 0.6 % Drops 1 drp OPHTHALMIC (EYE) BID amoxicillin 500 mg capsule 500 mg PO UD PRN (Reason: dental procedures) Rx Instructions: prior to dental procedures estradiol [Estrace] 0.01 % (0.1 mg/gram) cream 1 applic VAGINAL UD Rx Instructions: sunday and sunday Admission Data Admit Date/Time: 04/16/24 09:23 Attending Provider: Ramos Ochoa Admit Provider: Ramos Ochoa Primary Care Provider: Zion Garces Other Providers: [facility],Home Healthcare
--- NOTE | 2024-04-16 09:43 | XRay Report ---
XR shoulder RT 1V CLINICAL HISTORY: Status post right shoulder arthroplasty. COMPARISON: Right shoulder radiographs September 20, 2023. MRI of the right shoulder November 27, 2023. FINDINGS: Alignment of the right shoulder arthroplasty is anatomic. There is no periprosthetic fract ure or unexpected radiopaque foreign body. There are skin adair. IMPRESSION: Expected findings following right shoulder arthroplasty. ACT 112: Negative or not required by law. Electronically signed by: Sohan Cherry M.D. 04/16/2024 9:41 AM
[2024-04-16] MEDS: ONDANSETRON INJ 2 MG/ML 2 ML VIAL IV PRN (09:51)
--- NOTE | 2024-04-16 10:14 | Anesthesiology Progress Note ---
Date of Service April 16, 2024 Anesthesia Post Procedure Vital Signs Vital Signs: Temp Pulse Pulse Resp BP Pulse Ox O2 Del Method 04/16/24 10:00 58 L 13 133/70 98 Room Air 04/16/24 09:50 66 14 145/70 H 97 Room Air 04/16/24 09:40 36.4 C L 62 14 115/68 97 Room Air 04/16/24 09:30 58 L 19 131/66 100 Oxymask 04/16/24 09:20 85 16 105/69 99 Oxymask 04/16/24 09:14 36.2 C L 70 16 118/57 L 95 Oxymask 04/16/24 05:41 36.5 C 66 18 127/65 99 Room Air O2 Flow Rate 04/16/24 10:00 04/16/24 09:50 04/16/24 09:40 04/16/24 09:30 4 04/16/24 09:20 11 04/16/24 09:14 11 04/16/24 05:41 Transfer of Care Handoff Completed per policy Notes Mental Status: alert / awake / arousable and participated in evaluation Patient Amnestic to Procedure: Yes Nausea / Vomiting: adequately controlled Pain: adequately controlled Airway Patency, RR, SpO2: stable & adequate BP & HR: stable & adequate Hydration State: stable & adequate Anesthetic Complications: no major complications apparent and Pt Satisfied with anesthetic care
[2024-04-16] MEDS: VANCOMYCIN HCL 1,250 MG in SODIUM CHLORIDE 0.9% 250 ML IV ONE (10:33)
[2024-04-16] MEDS ORDERED: ONDANSETRON INJ 2 MG/ML 2 ML VIAL IV PRN (11:11)
[2024-04-16] MEDS ORDERED: ALBUTEROL HFA 8 GM INHALER INH PRN (11:11)
[2024-04-16] MEDS ORDERED: MAGNESIUM HYDROXIDE SUSP 30 ML UDC PO PRN (11:11)
[2024-04-16] MEDS ORDERED: HYDROmorphone INJ 0.5 MG/0.5 ML SYR IV PRN (11:11)
[2024-04-16] MEDS ORDERED: NALOXONE HCL 0.4 MG/1 ML VIAL/CARP IV PRN (11:11)
[2024-04-16] MEDS ORDERED: bisacodyL 10 MG SUPP PR PRN (11:11)
[2024-04-16] MEDS ORDERED: oxyCODONE HCL IR 5 MG TAB (IMMEDIATE RELEASE) PO PRN (11:11)
[2024-04-16] MEDS ORDERED: ARTIFICIAL TEARS OP PRN (11:23)
--- OUTSIDE RECORDS SUMMARY | 2024-04-16 11:51 | External Medical Summary | Summary of Care ---
Author Name Unknown Organization [facility] Address [address] [facility] [place] [address] Phone [phone] Care Team Providers Care Director Payment Name Role Phone Adrianne Maher PA-C Primary Care Provider [phone] Reason for Visit * Reason Comments pre-op exam Pt here for a pre op exam Encounter Details Date Type Department Care Team (Late st Contact Info) Description 04/02/2024 10:20 AM EST [facility] [address] [phone] Adrianne Maher PA-C [address] [phone] Pre-op evaluation*; Diabetes mellitus without complication (HCC); Risk and functional assessment; Acquired hypothyroidism; Mild persistent asthma, uncomplicated; CLL (chronic lymphocytic leukemia) (HCC); Primary osteoarthritis of right shoulder; Impaired mobility and ADLs Allergies Active Allergy Reactions Criticality Noted Date Comments Prochlorperazine 09/12/2000 tightness in throat Sulfa Antibiotics Rash 04/20/1999 documented as of this encounter (statuses as of 04/09/2024) Medications Levothyroxine Sodium 112 MCG Oral Tablet (Levoxyl)Indicatio ns:Acquired hypothyroidism TAKE 1 TABLET BY MOUTH DAILY AT LEAST 30 MINUTES PRIOR TO FIRST MEAL OF THE DAY OR OTHER MEDICATIONS 100 Tablet 3 4 6:23 PM EST 07/26/19 24 025 Active Fluticasone-Salmet brad 250-50 MCG/ACT Inhalation Aerosol Powder Breath Activated (Advair Diskus) inhale 1 puff by mouth twice a day 180 Each 3 4 12:08 PM EDT 07/25/19 24 Active Estradiol 0.1 MG/GM Vaginal Cream (Estrace) Apply pea sized amount (0.5 gm) vaginally twice a week at bedtime 42.5 g 3 10/26/19 24 Active Famotidine 20 MG Oral Tablet (Pepcid)Indication s:Esophageal dysmotility,Other cough,Dysphagia, unspecified type Take 1 Tablet by mouth in the morning and 1 Tablet before bedtime. 180 Tablet 12/24/19 24 Active Azelastine HCl 0.1 % Nasal Solution (Astelin) Administer 1 [place] into nostril 2 times a day as needed for Rhinitis. 024 Discontin ued(Patie nt preferenc e/discont inuation) documented as of this encounter (statuses as of 04/09/2024) Active Problems Problem Noted Date Diagnosed Date CLL (chronic lymphocytic leukemia) 04/02/2024 Other atherosclerosis of patricia cameron arteries of extremities, bilateral legs 11/13/2022 Uncomplicated asthma 11/13/2022 Diabetes mellitus without complication 3 Mild persistent asthma, uncomplicated 12/20/2020 Prediabetes 04/20/2020 Chronic rhinitis 07/07/2002 Hypothyroidism documented as of this encounter (statuses as of 04/09/2024) Resolved Problems Problem Noted Date Diagnosed Date Resolved Date Asthma with severity to be determined 05/08/2018 03/22/2021 Overview (03/22/2021): Duplicate. More specific code present. Acute cystitis with hematuria 09/23/2016 03/05/2018 Dysuria 09/23/2016 03/05/2018 Type 2 diabetes mellitus wit h hemoglobin A1c goal of less than 7.0% 08/06/2013 04/20/2020 Overview (08/24/2015): ICD-10 update of inactive term DERMATITIS DUE TO PLANT 12/07/200409/2017 Edema of eyelid 12/07/2004 03/05/2018 ADVANCE DIRECTIVE INFORMATION 09/30/2004 03/05/2018 Overview (09/30/2004): No, Advance Directive brochure given to patient at prior appointment. Cough 01/01/2003 03/05/2018 Gastroesophageal reflux dise ase with esophagitis 07/07/2002 03/30/2021 Candidal vulvovaginitis 01/11/200009/2017 HEEL PAIN 11/14/1999 03/05/2018 OA (osteoarthritis) of knee 03/30/2021 documented as of this encounter (statuses as of 04/09/2024) Immunizations Name Administration Dates Next Due COVID-19 mRNA, LNP-s, No Pre serve, 2-Dose Series (Moderna) 01/30/2024,02/26/2023,02/02/2022,06/01,05/27/2020 COVID-19, mRNA, LNP-s, PF, B ooster, 100mcg/0.5mg (Moderna) 02/28/2021 PPD 06/27/2006 Pneumococcal Conjugate Vacc, 13 Valent (Prevnar) 03/05/2018 Pneumococcal Polysaccharide PPV23 (Pneumovax) 04/13/2020,03/17/2013 Seasonal Influenza Vac., MDV , IM, 0.5 mL (Fluzone) 03/12/2014,01/15/2013,01/12/2012,01/28,04/11/2010,03/13/2007,03/01/20 06 01/15/2014 Seasonal Influenza, PF, 6 M & above, IM , (FluLaval or Fluzone) 01/30/2024,01/14/2020,03/05/2018,04/2016 Seasonal Influenza, Quadriva lent Hd (Fluzone Hd) 02/26/2023,01/03/2022,01/12/2021 Seasonal Influenza, Quadriva lent, No Preserve, IM 03/20/2016,03/15/2015 Seasonal Influenza, Trivalen t, Adjuvanted, 65+ YRS, PF, (Fluad) 03/18/2019 TDAP (age 10 and older)(Boostrix) 07/31/2022, Zoster Vaccine Recombinant (Shingrix) 04/02/2020 ,01/22/2020 documented as of this encounter Social History Tobacco Use Types Packs/Day Years Used Date Smoking Tobacco: Never Passive Smoke Exposure: Never Smokeless Tobacco: Never Alcohol Use Standard Drinks/Week Comments No 0 (1 standard drink = 0.6 oz pur e alcohol) PHQ-2 Answer Date Recorded PHQ Adult Total Score 0 04/02/2024 Hunger Vital Sign Answer Date Recorded Within the past 12 months, y ou worried that your food would run out before you got the money to buy more. Never true 04/02/20 24 Within the past 12 months, t he food you bought just didn't last and you didn't have money to get more. Never true 04/02/2024 Childcare Answer Date Recorded Do you feel overwhelmed with taking care of a child, family member or friend? No 04/02/2024 Does your family need help f inding childcare? (Household - for ages 0-17 years) Not on file 04/02/2024 Clothing Answer Date Recorded Have you been unable to get clothing when it was really needed? No 04/02/2024 Is your family able to get c lothes or diapers when needed? (Household - for ages 0-17 years) Not on file 04/02/2024 Personal Safety Answer Date Recorded Do you feel unsafe or have concerns for your saf ety? No 04/02/2024 Do you have concerns for you r family's safety? (Household - for ages 0-17 years) Not on file 04/02/2024 Utilities Answer Date Recorded Do you have trouble paying y our heating, water, or electric bill? No 04/02/2024 Is your family able to pay t he heat, water, or electric bill? (Household - for ages 0-17 years) Not on file 04/02/2024 Does your family have access to good internet? (Household - for ages 0-17 years) Not on file 04/02/2024 Employment Status Answer Date Recorded Are you unemployed or without regular income? No 04/02/2024 Does the household have a re gular source of income? (Household - for ages 0-17 years) Not on file 04/02/2024 Social Connections Answer Date Recorded How often do you feel lonely or isolated from th ose around you? Never 04/02/2024 Financial Resource Strain Answer Date R ecorded Do you have any trouble payi ng for your medications, or do you think you might in the future? No 04/02/2024 Does your family have troubl e paying for medicine? (Household - for ages 0-17 years) Not on file 04/02/2024 Transportation Needs Answer Date Record ed Do you have trouble getting a ride to medical visits or work? (Adult - for ages 18 years and over) Not on file 04/02/2024 Does your family have a hard time getting a ride to doctors visits? (Household - for ages 0-17 years) Not on file 04/02/2024 Has lack of transportation k ept you from medical appointments, meetings, work, or from getting things needed for daily living? Check all that apply. No 04/02/2024 Do you (or your family) have trouble finding or paying for a ride (transportation)? (Household - for ages 0-17 years) Not on file 04/02/2024 Housing Stability Answer Date Recorded Do you currently live in a s helter or have no steady place to sleep at night? No 04/02/2024 Do you think you are at risk of becoming homeless? (Adult - for ages 18 years and over) Not on file 04/02/2024 Does your family worry about paying for your home or becoming homeless? (Household - for ages 0-17 years) Not on file 1 06/03/2023 Are you homeless or worried that you might be in the future? No 04/02/2024 Are you (or your family) rd eless or worried that you might be in the future? (Household - for ages 0-17 years) Not on file Food Insecurity Answer Date Recorded Do you need food for this week? No 04/02/2024 Are you able to get enough f ood for your family? (Household - for ages 0-17 years) Not on file 04/02/2024 Does your family need food t his week? (Household - for ages 0-17 years) Not on file 04/02/2024 Do you always have enough fo od for your family? (Household - for ages 0-17 years) Not on file 04/02/2024 Comments No Sex and Gender Information Value Date Recorded Sex Assigned at Female 04/02/2024 10:36 AM EST Legal Sex Female 5:59 AM EST Gender Identity Female 04/02/2024 10:36 AM EST Sexual Orientation Straight 04/02/2024 10 :36 AM EST Occupation Industry Job Start Date Job End Date Not on file Not on file Not on file Not on file documented as of this encounter Last Filed Vital Signs Vital Sign Reading Time Taken Comments Blood Pressure 131/61 04/02/2024 10:37 AM EST Pulse 54 04/02/2024 10:37 AM EST Temperature 35.4 C (95.7 F) 04/02/2024 10:[address] Respiratory Rate 18 04/02/2024 10:37 AM EST Oxygen Saturation 98% 04/02/2024 10:37 AM EST Inhaled Oxygen Concentration - - Weight 63.5 kg (140 lb) 04/02/2024 10:37 AM EST Height - - Body Mass Index 29.26 03/31/2024 11:45 AM EST documented in this encounter Patient Instructions * Patient Instructions* Sywlia Walker LPN - 04/02/2024 10:41 AM EST Diabetes: Keeping Feet Healthy Inspect your feet every day for signs of a problem. Diabetes can damage nerves in your feet and cause neuropathy. This condition makes it hard for you to feel injuries or sore spots. Diabetes can also change blood flow, making it harder for small problems, like a blister, to heal properly. In fact, minor injuries can quickly become serious infections that send you to the hospital. Practice self-care to protect your feet and keep them healthy. Take Special Care Inspect your feet daily for problems such as redness, blisters, cracks, dry skin, or numbness. Use a mirror to see the bottoms of your feet. Or, ask for help. Manage your diabetes. Monitor and control your blood sugar. Take all your medications as prescribed. Avoid walking barefoot, even indoors. Wash your feet with warm water and mild soap. Dry well, especially between toes. Dont treat corns or calluses yourself. Talk to your doctor or rn prior authorization (a doctor who specializes in foot care) if you need assistance trimming your toenails. Use moisturizing cream or lotion if you have dry skin, but dont use it between toes. Dont use heating pads on your feet. If you have neuropathy, you could get a burn and not feel it. Stop smoking. Smoking restricts blood flow and can make it harder for wounds to heal. Have Regular Checkups Foot problems can develop quickly. So be sure to follow your healthcare teams schedule for regular checkups. During office visits, take off your shoes and socks as soon as you get in the exam room. Ask your healthcare provider to examine your feet for problems. This will make it easier to find and treat small skin irritations before they get worse. Regular checkups can also help keep track of the blood flow and feeling in your feet. If you have neuropathy, you may need to have checkups more often. Wear Proper Footwear Wearing proper footwear is very important. If areas of your feet have been damaged by too much pressure, your healthcare provider may recommend changing your footwear. In some cases, avoiding high heels or tight work boots may be all thats needed. Or, your healthcare provider may recommend special shoes or custom inserts. These help protect your feet and keep existing irritations from getting worse. If you need special footwear, ask your healthcare provider if you qualify for [facility] diabetic shoe program. Make Sure Shoes and Socks Fit Any pair of shoes--new or old--should feel comfortable as soon as you put them on. There shouldnt be any rubbing when you walk. Wear the right shoe for any activity. For instance, a running shoe is designed to keep your feet injury-free while jogging. Buy shoes at the end of the day, when your feet are larger. Make sure they provide support without feeling too loose. Make sure your socks fit, t oo. Wear soft, seamless, well-padded socks for activity. Cotton or microfiber socks are best to help to absorb sweat. To protect your feet, avoid shoes that are open-toed or open-heeled. If you have questions about what kinds of shoes and socks are best, talk to your healthcare team. Get Regular Exercise Regular exercise improves blood flow in your feet. It also increases foot strength and flexibility.Gentle exercises, like walking or riding a stationary bicycle, are best. You can also do special foot exercises. Just be sure to talk with your healthcare provider before starting any exercise program. Also mention if any exercise causes pain, redness, or other signs of foot problems. Note: If you have any kind of break in the skin of your foot or ankle, keep the area clean. Then call your doctor--especially if the area doesnt appear to be healing. [id number] [employer], [address] [place] [address], [place] [address]. All rights reserved. This information is not intended as a substitute for professional medical care. Always follow your healthcare professional's instructions. Patient Instructions - Fall Prevention (This education is for all patients over 65 regardless of symptoms) Remember to take your current medications as prescribed. In order to prevent falls, you are encouraged to: Exercise Utilize assistive/adaptive devices Avoid multifocal lenses when walking Avoid hazards in home Maintain a regular toileting schedule Any questions please contact our office. Preventing Falls in the Home (This education is for all patients over 65 regardless of symptoms) As you get older, falls are more likely. Thats because your reaction time slows. Your muscles and joints may also get stiffer, making them less flexible. Illness, medications, and vision changes can also affect your balance. A fall could leave you unable to live on your own. To make your home safer, follow these tips: Floors Put nonskid pads under area rugs Remove throw rugs Replace worn floor coverings Tack carpets firmly to each step on carpeted stairs. Put nonskid strips on the edges of uncarpeted stairs Keep floors and stairs free of clutter and cords Arrange furniture so there are clear pathways Clean up any spills right away Bathrooms Install grab bars in the tub or shower Apply nonskid strips or put a nonskid rubber mat in the tub or shower Sit on a bath chair to bathe Use bathmats with nonskid backing Lighting Keep a flashlight in each room Put a nightlight along the pathway between the bedroom and the bathroom [employer] Patient Education Copyright 2008 - 2010 [place] except where otherwise noted Preventing Falls: Exercises to Improve Balance, Flexibility, Strength, and Staying Power (This education is for all patients over 65 regardless of symptoms) Certain types of exercises may help make you less likely to fall. Try the ones below. Or do other exercises that your healthcare provider suggests. Depending on your health, you may need to start slowly. Dont let that stop you. Even small amounts of exercise can help you. Be sure to talk to yourhealthcare provider before starting any exercise program. Improve Balance Many types of exercise can help improve balance. Jose chi and yoga are good examples. Heres another one to try. You can do it anytime and almost anywhere. Stand next to a counter or solid support. Push yourself up onto your tiptoes. Hold for 5 seconds. If you start to lose your balance, hold on to the counter. Rest and repeat 5 times. Work up to holding for 20 to 30 seconds, if you can. Increase Flexibility Being more flexible makes it easier for you to move around safely. Try exercises like the seated hamstring stretch. Sit in a chair and put one foot on a stool. Straighten your leg and reach with both hands down either side of your leg. Reach as far down your leg as you can. Hold for about 20 seconds. Go back to the starting position. Then repeat 5 times. Switch legs. Build Strength Resistance exercises help build strength. You can do them without equipment. Or you can use weights, elastic bands, or special machines. One such exercise is called the biceps curl. You can hold a 1 pound weight or even a can of soup. Do this exercise at least 3 times a week. Strive for everyday. Sit up straight in a chair. Keep your elbow close to your body and your wrist straight. Bend your arm, moving your hand up to your shoulder. Then slowly lower your arm. Repeat 5 times. Switch to the other arm. Build Your Staying Power Aerobic exercises make your heart and lungs stronger so you can keep moving longer. Walking and swimming are two of the best types of exercises you can do. Using a stationary bike is great, too. Find an aerobic exercise that you enjoy. Start slowly and build up. Even 5 minutes is helpful. Aimfor a goal of 30 minutes, at least 3 times a week. You dont have to do 30 minutes in one session. Break it up and walk a little throughout the day. More Helpful Tips Start easy. Slowly work up to doing more. Talk with your healthcare provider about the best exercises for you. Call senior centers or health clubs about exercise programs. If needed, have a family member watch you walk every so often to check your stability. Exercise with a friend. Choose an activity you both enjoy. Try exercises that you can do anytime, anywhere. Here are two examples. Have someone with you when you first try these: Practice walking by placing one foot right in front of the other. Stand up and sit down 10 times. Repeat this throughout the day. [employer] Patient Education Copyright 2008 [employer] except where otherwise noted. Preventing Falls: Moving Safely Using a Cane or Walker (This education is for all patients over 65 regardless of symptoms) Keep the cane away from your feet so you dont trip. A walking aid, such as a cane or walker, can help you stay more independent and avoid falls. Remember to keep your walking aid within easy reach when youre in a chair or in bed. And learn how to use it safely so you dont injure yourself. Using a Cane If you have a stronger side, hold the cane on that side. Get your balance. Move the cane and your weaker leg forward. Support your weight on both the cane and your weaker side. Step with your stronger leg. Start again from step 1. If youre using a folding walker, be sure you know how to lock it open. Check that its locked open before each use. Using a Walker Roll the walker (or lift it, if youre using one without wheels) forward about 12 inches. Step forward with your weaker leg first. Use the walker to help keep your balance. Bring your other foot forward to the center of the walker. Start again from step 1. Helpful Tips Check with your healthcare provider about the right walking aid to use. Ask about a walker with a seat attached. Check the tips of your cane or walker to make sure they have nonskid covers. Move slowly from room to room. Dont rose. Sit down to get dressed. Use a christian pack or backpack to keep your hands free. Get help for jobs that mean climbing, even on a stepstool. [employer] Patient Education Copyright 2008 - 2010 [employer] except where otherwise noted. Urinary Incontinence Plan of Care Documentation: (This education is for all patients over 65 regardless of symptoms) Current medications reconciled. Patient encouraged to: Practice kegal exercises Provide education materials Use the restroom every 2 hours throughout the day Limit caffeine, alcohol, spicy foods and acidic foods Keep a bladder diary Limit fluid intake 3-4 hours before bed Lose weight Prevent constipation Take fluid pills at a time when you can get to the bathroom quickly Control sugar better if diabetic Limit fluid intake to 60 oz. per day Wear support stockings (TEDs)if you have edema Sylwia Walker LPN 04/02/2024 Kegel Exercises Kegel exercises dont require special clothing or equipment. Theyre easy to learn and simple to do. And if you do them right, no one can tell youre doing them, so they can be done almost anywhere. Your doctor, nurse, or physical therapist can answer any questions you have and help you get started. A Weak Pelvic Floor The pelvic floor muscles may weaken due to aging, and vaginal childbirth, injury, surgery, chronic cough, or lack of exercise. If the pelvic floor is weak, your bladder and other pelvic organs may sag out of place. The urethra may also open too easily and allow urine to leak out. Kegel exercises can help you strengthen your pelvic floor muscles so they can better support the pelvic organs and control urine flow. How Kegel Exercises Are Done Try each of the Kegel exercises described below. When youre doing them, try not to move your leg, buttock, or stomach muscles. While youre urinating, try to stop the flow of urine. Start and stop it as often as you can. Contract as if you were stopping your urine stream, but do it when youre not urinating. Tighten your rectum as if trying not to pass gas. Contract your anus, but dont move your buttocks. Helpful Hints Do your Kegels as often as you can. The more you do them, the faster youll feel the results. Pick an activity you do often as a reminder. For instance, do your Kegels every time you sit down. Tighten your pelvic floor before you sneeze, get up from a chair, cough, laugh, or lift. This protects your pelvic floor from injury and can help prevent urine leakage. Try to hold each Kegel for a slow count to five. You probably wont be able to hold them for thatlong at first, but keep practicing. It will get easier as your pelvic floor gets stronger. Eventually, special weights that you place in your vagina may be recommended to help make your Kegels even more effective. [employer] Patient Education Copyright 2008 - 2010 [employer] except where otherwise noted. Here are some helpful tips for your urinary incontinence: (This education is for all patients over 65 regardless of symptoms) Practice Kegel exercises Use the restroom every 2 hours throughout the day Limit caffeine, alcohol, spicy foods, and acidic foods Keep a bladder diary Limit fluid intake 3-4 hours before bed Lose weight Prevent constipation Take fluid pills at a time when can get to the bathroom quickly Control sugar better if diabetic Limit fluid intake to 60 oz. per day Any questions, please feel free to contact our office. documented in this encounter Progress Notes * Sylwia Walker LPN - 04/02/2024 10:31 AM EST Socks and Shoes Removed for Annual Diabetic Foot Screening RIGHT FOOT: Area of Concern: pt has dry skin on the bottom of feet . RIGHT Dorsalis Pedis Pulse: Palpable RIGHT Posterior Tibial Pulse: Palpable RIGHT Monofilament:Patient reports feeling monofilament pressure on plantar surface of foot LEFT FOOT: are of concern: pt has dry skin on the bottom of foot LEFT Dorsalis Pedis Pulse: Palpable LEFT Posterior Tibial Pulse: Palpable LEFT Monofilament:Patient reports feeling monofilament pressure on plantar surface of foot Do you need diabetic shoes: No DM Foot Exam completed today. Provider aware. Sylwia Walker LPN documented in this encounter Nursing Notes * Sylwia Walker LPN - 04/02/2024 10:25 AM EST Chief Complaint Patient presents with pre-op exam Pt here for a pre op exam Please check pt's urine test results documented in this encounter Miscellaneous Notes * Result Encounter Note - Adrianne Maher PA-C - 04/07/2024 3:20 PM EST Results have been reviewed at office visit documented in this encounter Plan of Treatment Upcoming Encounters Date Type Department Care Team (Late st Contact Info) Description 05/16/2024 11:00 AM EST Office Visit Urogynecology [facility] [address] [place] [id number] Diann Dodge PA-C [address] [place] [address] 09/23/2024 11:00 AM EDT Laboratory Laboratory, [facility] [address] [phone] [facility] [address] [place] [address] [place] [address] 09/29/2024 1:00 PM EDT Office Visit Hematology/[facility] [address] [facility] [id number] Belen Loredo MD [address] [place] [address] [place] [phone] 11/06/2024 11:20 AM EDT Office Visit Family Practice, [address] [phone] Adrianne Maher PA-C [address] [facility] [employer] [facility] [employer] [facility] [address] Health Maintenance Due Date Last Done Comments Cologuard 1997 Sigmoidoscopy 1997 Adult Wellness Visit 2018 Fecal Occult Blood Test 01/26/2021 01/27/20 20, 03/17/2013, 11/12/1999, Additional history exists COVID-19 Vaccine ( season) 2024 01/30/2024, 02/26/2023, 02/02/2022, Additional history exists Mammogram 08/12/2024 08/13/2023, 07/29, 08/09/2022, Additional history exists HbA1c 09/29/2024 03/31/2024, 07/0 11/2023, 05/25/2023, Additional history exists Albumin/Creatinine Ratio 11/04/2024 024, 05/25/2023, 11/13/2022, Additional history exists Diabetic Eye Exam 01/24/2025 01/25/2024, , 11/09/2022, Additional history exists GFR 03/31/2025 03/31/2024, 07/0 11/2023, 05/25/2023, Additional history exists TSH 03/31/2025 03/31/2024, 05/01, 11/13/2022, Additional history exists Depression Screening 04/02/2025 04/02/2024 Diabetic Foot Exam 04/02/2025 04/02/2024, 0 12/28/2022, 04/13/2020, Additional history exists DXA Scan 04/29/2026 04/29/2019, 08/24/2008 Colonoscopy 03/10/2030 03/10/2020, 02/28, 03/21/2013, Additional history exists Colorectal Cancer Screening 03/10/2030 DTap/Tdap Vaccines (3 - Td or Tdap) 07/31/2032 07/31/2022, 01/12/2012, 07/19/2004, Additional history exists Zoster Vaccines Completed 04/02/2020, 01/22/2020 Pneumococcal Vaccine: 65+ Years Completed 04/13/2020, 03/05/2018, 03/17/2013 Influenza Vaccine (FLU shot) Completed 01/30/2024, 02/26/2023, 01/03/2022, Additional history exists HPV (Gardasil) Vaccine Aged Out No lo nger eligible based on patient's age to complete this topic Hepatitis B Vaccine Aged Out No longe r eligible based on patient's age to complete this topic Hepatitis C Screening Discontinued MENINGOCOCCAL (MENACTRA/MENVEO) Aged Out No longer eligible based on patient's age to complete this topic documented as of this encounter Medical Devices Not on filedocumented as of this encounter Procedures Procedure Name Priority Date/Time Associated Diagnosis Comments TSH WITH FREE T4 IF INDICATED Routine 03/31/2024 12:23 PM EST Acquired hypothyroidism HEMOGLOBIN A1C Routine 03/31/2024 12:23 PM EST Diabetes mellitus without complication (HCC) documented in this encounter Results * TSH WITH FREE T4 IF INDICATED (03/31/2024 12:23 PM EST) TSH 2.62 0.27 - 4.20 uIU/mL 04/02/2024 12:04 PM EST LAB[facility]ATORY [facility] Blood Venous blood specimen / Unknown Venipuncture / Unknown 03/31/2024 12:23 PM EST 03/31/2024 12:23 PM EST Adrianne Maher PA-C LAB BLOOD ORDERABLES Antonia l Result LABORATORY [facility] [address] [place] [address] * (ABNORMAL) HEMOGLOBIN A1C (03/31/2024 12:23 PM EST) Hemoglobin A1C 6.7(H) 4.0 - 5.6 % 04/02/2024 6:22 PM EST LABORATORY [facility] Comment:The use of HbA1c to monitor glycemic status is based on normal hemoglobin and HbA composition. This test should not be used in patients with abnormal hemoglobin that affects the half life of the red blood cell or the in vivo glycation rates. Estimated Average Glucose 146(H) <126 mg/dL 04/02/2024 6:22 PM EST LAB[facility]ATORY [facility] Blood Venous blood specimen / Unknown Venipuncture / Unknown 03/31/2024 12:23 PM EST 03/31/2024 12:23 PM EST us Adrianne Maher PA-C LAB BLOOD ORDERABLES Antonia l Result LABORATORY [facility] [address] [place] [address] documented in this encounter Visit Diagnoses Diagnosis Pre-op evaluation- Primary Preoperative examination, unspecified Diabetes mellitus without complication (HCC) Type II or unspecified type diabetes mellitus without mention of complication, not stated as uncontrolled Risk and functional assessment Screening for unspecified condition Acquired hypothyroidism Unspecified hypothyroidism Mild persistent asthma, uncomplicated Unspecified asthma CLL (chronic lymphocytic leukemia) (HCC) Chronic lymphoid leukemia, without mention of having achieved remission Primary osteoarthritis of right shoulder Primary localized osteoarthrosis, shoulder region Impaired mobility and ADLs Mechanical problems with limbs documented in this encounter Advance Directives Documents on File Type Date Recorded Patient Driver Courier Expl anation Advance Directives and Living Will 05/18/2020 ADVANCE DIRECTIVE / LIVING WILL Care Teams Director Payment Relationship Specialty Start Date End Date Adrianne Maher PA-C [address] [place] [address] PCP - General Physician Cogeneration Technician 11/12/23 documented as of this encounter
--- OUTSIDE RECORDS SUMMARY | 2024-04-16 11:51 | External Medical Summary | Continuity of Care Document ---
Author Name Unknown Organization [facility] [id number] Address [address] [place] [id number] Care Team Providers Care [employer] Library Technical Assistant Name Role Phone Zion Garces Primary Care Physician [phone] Encounter [facility] [id number] Date(s): 04/08/24 - 04/08/24 [facility] [address] [place] [id number] [facility] Medicine [address] [place] [address] Encounter Diagnosis Osteoarthritis of right shoulder region(Discharge Diagnosis) - 04/08/24 Discharge Disposition: Home or Self Care Attending Physician: JOEY Henriquez, Guanaco Pretty Allergies, Adverse Reactions, Alerts Substance Criticality Severity Reaction Reaction Severity Status prochlorperazine Act cameron sulfa drugs Active Medications amoxicillin 500 mg oral capsule Start: 06/14/23 5:17:00 PM EST, See Instructions, Disp# 4 cap, Refills: 2, take 4 capsules by mouth 1 hour before dental procedures as directed, Pharmacy: [id number] Start Date: 06/14/23 Status: Ordered estradiol 0.1 mg/g vaginal cream Start: 07/19/23 2:19:00 PM EDT Start Date: 07/19/23 Status: Ordered famotidine 20 mg oral tablet Start: 07/19/23 2:19:00 PM EDT Start Date: 07/19/23 Status: Ordered fluticasone-salmeterol Diskus 250 mcg-50 mcg Start: 09/22/21 3:12:00 PM EDT, 1 puff, inhaled, bid Start Date: 09/22/21 Status: Ordered levothyroxine 100 mcg (0.1 mg) oral tablet Start: 11/23/14 9:50:00 AM EDT, take one every other day. Start Date: 11/23/14 Status: Ordered levothyroxine 112 mcg (0.112 mg) oral tablet Start: 11/23/14 9:50:00 AM EDT, take every other day Start Date: 11/23/14 Status: Ordered nitrofurantoin macrocrystals-monohydrate 100 mg oral capsule Start: 07/19/23 2:19:00 PM EDT Start Date: 07/19/23 Status: Ordered unknown medication Start: 09/20/23 3:54:00 PM EDT, allergy pills Start Date: 09/20/23 Status: Ordered Mental Status 04/08/24 Barriers to Learning one year None evide nt Mandatory Health Literacy Documentation Yes Health Literacy Communication Barriers N ever Primary Language Hungarian Problem List Condition Confirmation Course Effective Dates Status H ealth Status Informant Asthma Confirmed Active Fracture of 3rd metatarsal Confirmed Active Left foot pain Confirmed Active Status post left knee replacement Confirmed Active Hypothyroid Confirmed Active Knee osteoarthritis Confirmed Active Osteoarthritis of right shoulder region Confirmed Active Torn medial meniscus Confirmed Active Diagnosis Diagnosis Type Effective Dates Health Status Clinical Service Informant Osteoarthritis of right shoulder region Discharge Diagnosis 04/08/24 Vital Signs Most recent to oldest [Reference Range]: 1 Height 147 cm (04/08/24 11:52 AM) Patient Weight 62.9 kg (04/08/24 11:52 AM) Body Mass Index 29.11 kg/m2 (04/08/24 11:52 AM) Temperature [36.5-37.9 DegC] 36.5 DegC (04/08/24 11:52 AM) Respiratory Rate 20 br/min (04/08/24 11:52 AM) Blood Pressure 118/70mmHg (04/08/24 11:52 AM) Social History Social History Type Response Smoking Status Never smoked cigaret josiah Sex Female Sex Representation Female (finding) Pre-OP H & P * JOEY Henriquez Cory D: PERFORM, MODIFY, MODIFY, MODIFY Event Display: Pre-OP H & P Authored Date: PRE-OPERATIVE HISTORY AND PHYSICAL Name: PABLO DIGGS Patient Number: [id number] : 1950 Date of Service: 04/08/2024 PRE-OP Diagnosis: Right shoulder end-stage osteoarthritis Planned Procedure: Right shoulder total shoulder arthroplasty Chief Complaint: Right shoulder pain and loss of motion History of Present Illness (including history relevant to procedure): This 73-year-old female presents today for her preoperative history and physical. She is scheduled to undergo a right shoulder total shoulder arthroplasty on 04/16/[address] Ochoa. The patient has had a longstanding history of right shoulder pain that has become worse with time. Symptoms have been present for over ayear. She has tried physical therapy as well as activity modification and oral medications without improvement. At this point she elects to proceed with surgery in hopes of improving her pain and function. [id number]. No numbness or tingling. Her pain is affecting her ADLs. Preoperative imaging has been obtained. She was recently diagnosed with CLL. She has already seen hematology and her PCP for medical clearance. Review Of Systems: A total of 10 systems were reviewed and are significant only for below stated conditions. Family history: Significant for diabetes. Parents are . Social history: The patient is . No tobacco use, no EtOH use. Retired. Past Medical History: Problems: Osteoarthritis of right shoulder region Status post left knee replacement Fracture of 3rd metatarsal Left foot pain Knee osteoarthritis Torn medial meniscus Hypothyroid Asthma CLL Procedure History Procedure Procedure Date Comments Left total knee arthroplasty D&C Tubal ligation Colonoscopy Allergies and Sensitivities: prochlorperazine sulfa drugs Current Home Meds: (Last Updated 04/08 11:47) amoxicillin (amoxicillin 500 mg oral capsule) take 4 capsules by mouth 1 hour before dental procedures as directed estradiol topical (estradiol 0.1 mg/g vaginal cream) famotidine (famotidine 20 mg oral tablet) fluticasone-salmeterol (fluticasone-salmeterol Diskus 250 mcg-50 mcg) 1 puff inhaled bid levothyroxine (levothyroxine 100 mcg (0.1 mg) oral tablet) take one every other day. levothyroxine (levothyroxine 112 mcg (0.112 mg) oral tablet) take every other day nitrofurantoin (nitrofurantoin macrocrystals-monohydrate 100 mg oral capsule) unknown medication allergy pills Vitals: Last Updated 04/08/24 11:52 Weights: Last Updated 04/08/24 11:52 Date Temp Pulse BP RR SpO2 FIO2 Date Wt(kg) Wt(lb) 04/08 11:52 36.5 118/70 20 99 04/08 11:52 62.9 138 04/08 11:52 62.9 138 24 Hr Tmax: 36.5 at 04/08 11:52 Initial Wt: 04/08 62.9 kg 138 lb Physical Exam: (relevant to the procedure, including heart and lung evaluation) General: Well-developed, well-nourished, elderly female, in no acute distress. Sitting in a chair. Alert and oriented. HEENT: Normocephalic, atraumatic. Eyes PERRLA, EOMI. Nares patent bilaterally without nasal drainage. Oropharynx with moist oral mucosa. Fair dentition. Upper denture plate noted. Neck: No JVD. Cardiac: RRR. Occasional PVC. No MGR. Peripheral pulses are 2+. Lungs: Clear to auscultation bilaterally. No crackles, rhonchi, or wheezing. Good air movement. Abdomen: Mildly obese. Bowel sounds present x 4. Soft nontender. No organomegaly. No masses. Extremities: Right shoulder has no obvious asymmetry or deformity. She has limited motion secondaryto pain. Forward flexion of 110 degrees, 90 degrees abduction, external rotation of 20 degrees, behind the back reach to her sacrum. Neuro: Gross sensation is intact across both upper extremities by soft touch. Skin: Warm dry with good turgor. No rashes. No ecchymosis or edema. Studies of radiology results (relevant to the procedure): Radiographic imaging previously obtained shows end-stage DJD of her right shoulder. Periarticular osteophytes, subchondral sclerosis, and joint space narrowing are present. ASSESSMENT: Right shoulder end-stage DJD Plan: Approximate 30 minutes was spent with the patient reviewing operative procedure, postoperative recovery, physical therapy requirements, and medication use. All of her questions were answered. She is having her son stay with her for 2 weeks postop. She would like to have home health for therapy. Anticipate discharge to home. Postoperative prescription for Percocet will be sent upon dischargefrom the hospital. She currently has a mild cough. She has been evaluated by her PCP and it has been determined to be viral. There is no contraindication to surgery at this time. She denies any fevers. PDMP was checked and there are no concerning findings. Postoperative follow-up appointment has been made with me for May 01. She has already received hematology and PCP clearance. This dictation has been completed using Dragon auto text voice recognition software. Grammatical errors, omissions, insertions, and misspellings may be present due to the limitations of the software. Electronic Signature on File Electronically Reviewed/Signed by: Guanaco Henriquez PA-C Author Signature Dt/Tm:04/08/2024 02:57 PM Division of Sports Medicine Electronically Reviewed/Signed by: Ramos Ochoa MD Cosigner Signature Dt/Tm: 04/08/2024 03:05 PM Easement Man for Clinical Affairs, [facility] Professor in Orthopaedics Seasonal Sales Associate, [facility] Sports [facility] CDS Patient Care team information Care Team Personnel Name: MD Dez, Zion Kulkarni Position: Referring DIRECT Member Role: Primary Care Provider Address: [address] [place] [id number]
--- OUTSIDE RECORDS SUMMARY | 2024-04-16 11:51 | External Medical Summary | Summary of Care ---
Author Name Unknown Organization [facility] Address [address] [facility] [address] Phone [phone] Care Team Providers Care [employer] Counter Person Name Role Phone Adrianne Maher PA-C Primary Care Provider [phone] Encounter Details Date Type Department Care Team (Late st Contact Info) Description 04/11/2024 Orders Only Hematology/Oncology [facility] [address] [place] [address] [facility] [phone] Belen Loredo MD [address] [facility] [phone] CLL (chronic lymphocytic leukemia) (HCC)*; Thrombocytopenia, congenital and hereditary (HCC); Erythrocytosis Allergies Active Allergy Reactions Criticality Noted Date Comments Prochlorperazine 09/12/2000 tightness in throat Sulfa Antibiotics Rash 04/20/1999 documented as of this encounter (statuses as of 04/11/2024) Medications Levothyroxine Sodium 112 MCG Oral Tablet (Levoxyl)Indicatio ns:Acquired hypothyroidism TAKE 1 TABLET BY MOUTH DAILY AT LEAST 30 MINUTES PRIOR TO FIRST MEAL OF THE DAY OR OTHER MEDICATIONS 100 Tablet 3 03/13/2024 6:23 PM EST 07/26/19 24 025 Active Fluticasone-Salmet brad 250-50 MCG/ACT Inhalation Aerosol Powder Breath Activated (Advair Diskus) inhale 1 puff by mouth twice a day 180 Each 3 01/15/2024 12:08 PM EDT 07/25/19 24 Active Estradiol 0.1 MG/GM Vaginal Cream (Estrace) Apply pea sized amount (0.5 gm) vaginally twice a week at bedtime 42.5 g 3 10/26/19 24 Active Famotidine 20 MG Oral Tablet (Pepcid)Indication s:Esophageal dysmotility,Other cough,Dysphagia, unspecified type Take 1 Tablet by mouth in the morning and 1 Tablet before bedtime. 180 Tablet 12/24/19 24 Active documented as of this encounter (statuses as of 04/11/2024) Active Problems Problem Noted Date Diagnosed Date CLL (chronic lymphocytic leukemia) 04/02/2024 Other atherosclerosis of patricia cameron arteries of extremities, bilateral legs 11/13/2022 Uncomplicated asthma 11/13/2022 Diabetes mellitus without complication Mild persistent asthma, uncomplicated 12/20/2020 Prediabetes 04/20/2020 Chronic rhinitis 07/07/2002 Hypothyroidism documented as of this encounter (statuses as of 04/11/2024) Resolved Problems Problem Noted Date Diagnosed Date [...] as of this encounter (statuses as of 04/11/2024) Immunizations Name Administration Dates Next Due COVID-19 [...] 04/02/2024 Does the household have a re lar source of income? (Household - for ages [...] on file documented as of this encounter Plan of Treatment Upcoming Encounters Date Type Department Care Team (Late st Contact Info) Description 05/16/2024 11:00 AM EST Office Visit Urogynecology [facility] [address] [place] [address] Diann Dodge PA-C [address] [place] [address] 09/23/2024 11:00 AM EDT Laboratory Laboratory, [place] [address] [place] [phone] [facility], [facility] [address] [place] [address] [place] [address] 09/29/2024 1:00 PM EDT Office Visit Hematology/Oncology [facility] [address] [facility], [place] [address] Belen Loredo MD [address] [place] [address] [place] [phone] 11/06/2024 11:20 AM EDT Office Visit Family Practice, [address] [place] [phone] Adrianne Maher PA-C [address] [place] [address] Scheduled Orders Name Type Priority Associated Diagnoses Orde r Schedule CBC WITH WBC DIFFERENTIAL Lab STAT CLL (chronic lymphocytic leukemia) ([facility]) Expected: 10/10/2024 (Approximate), Expires: 04/11/2025 COMPREHENSIVE METABOLIC PANEL Lab STAT CLL (chronic lymphocytic leukemia) ([facility]) Expected: 10/10/2024 (Approximate), Expires: 04/11/2025 IMMUNOGLOBULIN QUANTITATIVE Lab Routine CLL (chronic lymphocytic leukemia) ([facility]) Expected: 10/10/2024 (Approximate), Expires: 04/11/2025 [id number], SERUM Lab Routine CLL (chronic lymphocytic leukemia) ([facility]) Expected: 10/10/2024 (Approximate), Expires: 04/11/2025 MONOCLONAL GAMMOPATHIES SCREENING PANEL Lab Routine CLL (chronic lymphocytic leukemia) (HCC) Expected: 10/10/2024 (Approximate), Expires: 04/11/2025 Health Maintenance Due Date Last Done Comments [...] Not on filedocumented as of this encounter Visit Diagnoses Diagnosis CLL (chronic lymphocytic leukemia) (HCC)- Primary Chronic lymphoid leukemia, without mention of having achieved remission Thrombocytopenia, congenital and hereditary (HCC) Congenital and hereditary thrombocytopenic purpura Erythrocytosis Polycythemia, secondary documented in this encounter Advance Directives Documents on File Type Date Recorded Patient Insurance And Financial Services Agent Expl anation Advance Directives and Living Will 05/18/2020 ADVANCE DIRECTIVE / LIVING WILL Care Teams Auto Parts Counter Person Relationship Specialty Start Date End Date Adrianne Maher PA-C [address] [facility] [place] [address] PCP - General Physician Resistance Machine Welder Setter 11/12/23 documented as of this encounter
--- OUTSIDE RECORDS SUMMARY | 2024-04-16 11:52 | External Medical Summary ---
Author Name Unknown Address Unknown Organization [id number]:[facility] [address] [facility] [address] Laboratory Report Ordering Provider Test Date Status WILLBREECED 03/31/2024 12:23:00 Final Observation Date Value Abnormality Reference (Units ) Status HbA1C 03/31/2024 12:23:00 6.7 Above high normal 4. 0-5.6 (%) Final The use of HbA1c to monitor glycemic status is based on normal hemoglobin and HbA composition. This test should not be used in patients with abnormal hemoglobin that affects the half life of the red blood cell or the in vivo glycation rates. Glucose, estimated average 03/31/2024 12:23:00 146 Above high normal <126 (mg/dL) Omar gallegos Performing Location [facility] [address] [facility] [address]
--- OUTSIDE RECORDS SUMMARY | 2024-04-16 11:52 | External Medical Summary ---
Author Name Unknown Address Unknown Organization [id number]:[facility]ORY [facility] - [address] [place] [address] Laboratory Report Ordering Provider Test Date Status SACHA BURROUGHSPAMELA 03/31/2024 12:23:00 Final Observation Date Value Abnormality Reference (Units ) Status IgG 03/31/2024 12:23:00 573 236-7626 ( mg/dL) Final IgA 03/31/2024 12:23:00 93 70-400 (mg /dL) Final IgM 03/31/2024 12:23:00 70 40-230 (mg /dL) Final Performing Location [facility]ATORY [facility] - [address] [place] [address]
--- OUTSIDE RECORDS SUMMARY | 2024-04-16 11:52 | External Medical Summary ---
Author Name Unknown Address Unknown Organization K09:[facility]ATORY [place] [address] Laboratory Report Ordering Provider Test Date Status ANITA BURROUGHS 03/31/2024 12:23:00 Final Observation Date Value Abnormality Reference (Units ) Status WBC, Total 03/31/2024 12:23:00 14.35 Above high normal 4 .00-10.80 (K/uL) Final RBC 03/31/2024 12:23:00 4.57 3.85-5.15 (M/uL) Final Hemoglobin 03/31/2024 12:23:00 14.5 12.0-15.3 (g/dL) Final HCT 03/31/2024 12:23:00 43.6 36.0-45.2 (%) Final MCV 03/31/2024 12:23:00 95.4 81.5-97.5 (fL) Final MCH 03/31/2024 12:23:00 31.7 27.0-34.0 (pg) Final MCHC 03/31/2024 12:23:00 33.3 32.0-36.0 (g/dL) Final RDW 03/31/2024 12:23:00 13.1 11.5-15.5 (%) Final Platelets 03/31/2024 12:23:00 232 140-400 (K /uL) Final MPV 03/31/2024 12:23:00 8.7 6.6-11.1 ( fL) Final Performing Location LABORATORY [place] [address]
--- OUTSIDE RECORDS SUMMARY | 2024-04-16 11:52 | External Medical Summary | Continuity of Care Document ---
Author Name Unknown Organization [facility] [address] [place], [place] [address] Address [address] [place] [id number] Care Team Providers Care Accounting Associate Name Role Phone Zion Garces Primary Care Physician [phone] Encounter [facility] [id number] Date(s): 03/21/24 - 03/21/24 [facility] [address] [id number] [facility] [address] [place] [address] Encounter Diagnosis Osteoarthritis of right shoulder region(Discharge Diagnosis) - 03/21/24 Discharge Disposition: Home or Self Care Attending Physician: JOEY Henriquez, Guanaco Pretty Referring Physician: MD Don, Ramos Martin Allergies, Adverse Reactions, Alerts Substance Criticality Severity Reaction Reaction Severity Status prochlorperazine Act cameron sulfa drugs Active Medications amoxicillin 500 mg oral capsule Start: 06/14/23 5:17:00 PM EST, See Instructions, Disp# 4 cap, Refills: 2, take 4 capsules by mouth 1 hour before dental procedures as directed, Pharmacy: [id number] Start Date: 06/14/23 Status: [...] Start Date: 09/20/23 Status: Ordered Mental Status 03/21/24 Barriers to Learning one year None evide nt Mandatory Health Literacy Documentation Yes Health Literacy Communication Barriers N ever Primary Language Serbian Problem List Condition Confirmation Course Effective Dates [...] Osteoarthritis of right shoulder region Discharge Diagnosis 03/21/24 Vital Signs Most recent to oldest [Reference Range]: 1 Temperature [36.5-37.9 DegC] 36.5 DegC (03/21/24 9:47 AM) Blood Pressure 128/70mmHg (03/21/24 9:47 AM) Social History Social History Type Response Smoking Status Never smoked cigaret josiah Sex Female Sex Representation Female (finding) Pre-OP H & P * JOEY Henriquez Cory D: PERFORM, MODIFY, MODIFY Event Display: Pre-OP H & P Authored Date: PRE-OPERATIVE HISTORY AND PHYSICAL Name: PABLO DIGGS Patient Number: [id number] : 1950 Date of Service: 03/21/2024 PRE-OP Diagnosis: Right shoulder end-stage osteoarthritis Planned [...] hopes of improving her pain and function. Xbaxp-tdyl-lbtrppip. No numbness or tingling. Her pain is affecting her ADLs. Preoperative imaging has been obtained. Review Of Systems: A total of 10 systems were reviewed and are significant only for below stated conditions. Family history: Significant for diabetes. Parents are . Social history: The patient is . No tobacco use, no EtOH use. Retired. Past Medical History: Problems: Osteoarthritis of right shoulder region Status post left knee replacement Fracture of 3rd metatarsal Knee osteoarthritis Torn medial meniscus Hypothyroid Asthma Diabetes(diet controlled) Procedure History Procedure Procedure Date Comments Left total knee arthroplasty D&C Tubal ligation Colonoscopy Allergies and Sensitivities: prochlorperazine sulfa drugs Current Home Meds: (Last Updated 03/21 09:43) amoxicillin (amoxicillin 500 mg oral capsule) take [...] unknown medication allergy pills Vitals: Last Updated 03/21/24 09:47 Weights: No Weight Data Available Date Temp Pulse BP RR SpO2 FIO2 Date Wt(kg) Wt(lb) 03/21 09:47 36.5 128/70 98 24 Hr Tmax: 36.5 at 11 09:47 Initial Wt: No Data Available Physical Exam: (relevant to the procedure, including heart and lung evaluation) General: Well-developed, well-nourished, elderly female, in no acute distress. Sitting in a chair. Alert and oriented. HEENT: Normocephalic, atraumatic. Eyes PERRLA, EOMI. Nares patent bilaterally without nasal drainage. Oropharynx with moist oral mucosa. Fair dentition. Neck: No JVD. Cardiac: RRR. No MGR. Peripheral pulses are 2+. Lungs: Clear to auscultation bilaterally. No crackles, rhonchi, or wheezing. Good air movement. Abdomen: Mildly obese. Bowel sounds present x 4. Soft nontender. No organomegaly. No masses. Extremities: Neuro: Gross sensation is intact across both upper extremities by soft touch. Skin: Warm dry with good turgor. No rashes. No ecchymosis or edema. Studies of radiology results (relevant to the procedure): Radiographic imaging previously obtained shows end-stage DJD of her right shoulder. Periarticular osteophytes, subchondral sclerosis, and joint space narrowing are present. ASSESSMENT: Right shoulder end-stage DJD Plan: Approximately 35 minutes was spent with the patient reviewing operative procedure, postoperative recovery, physical therapy requirements, and medication use. She has already completed her preoptesting. Her CBC showed an elevated white count and specifically an elevation in her lymphocytes. Further lab testing was performed identifying deletion of 13q.14 marker. Fluorescence in situ hybridization (FISH) was performed suggesting chronic lymphocytic leukemia. We had a long discussion regarding this. Results have been faxed to her PCP. I attempted to contact them directly but was unsuccessful. Additional attempts will be made. For now we will plan to proceed with her surgery, however given this new diagnosis. She understands that her surgery may be postponed. She will likely need oncology evaluation for further management. She is scheduled to see her PCP next week. PAT has been completed. Postop appointment has been made with me for May 01. She is currently asymptomatic of any COVID-19 or influenza symptoms. PDMP was checked and there are no concerning findings. This dictation has been completed using [employer] text voice recognition software. Grammatical errors, omissions, insertions, and misspellings may be present due to the limitations of the software. Electronic Signature on File Electronically Reviewed/Signed by: Guanaco Henriquez PA-C Author Signature Dt/Tm:03/21/2024 04:20 PM Division of Sports Medicine Electronically Reviewed/Signed by: Ramos Ochoa MD Cosigner Signature Dt/Tm: 03/21/2024 04:28 PM Employment Coordinator for Clinical Affairs, [facility] Zee Professor in Orthopaedics Sap Gatherer, [facility] CDS Patient Care team information Care Team Personnel Name: MD Dez, Zion Kulkarni Position: Referring DIRECT Member Role: Primary Care Provider Address: [address] [place] [address]
--- OUTSIDE RECORDS SUMMARY | 2024-04-16 11:52 | External Medical Summary ---
Author Name Unknown Address Unknown Organization : Laboratory Report Ordering Provider Test Date Status NAITA BURROUGHS 03/31/2024 12:23:00 Final Observation Date Value Abnormality Reference (Units ) Status Beta-2 Microglobulin 03/31/2024 12:23:00 1.93 <=2.51 (mg/L) Final Test Performed at:
[employer] [facility]
[address] [facility]
[place] [address]
Antione Coleman M.D., Ph.D.,Director of Laboratories Performing Location
--- OUTSIDE RECORDS SUMMARY | 2024-04-16 11:52 | External Medical Summary ---
Author Name Unknown Address Unknown Organization K09:[facility] [place] [address] Laboratory Report Ordering Provider Test Date Status ANITA BURROUGHS 03/31/2024 12:23:00 Final Observation Date Value Abnormality Reference (Units ) Status SYNC LEUKOCYTES IN BLOOD BY AUTOMATED COUNT 03/31/2024 12:23:00 14.35 Above high normal 4.00-10.80 (K/uL) Final Segs 03/31/2024 12:23:00 44.0 40.0-75.0 (%) Final Lymphs % 03/31/2024 12:23:00 47.0 Above high normal 18.0-42.0 (%) Final Monos 03/31/2024 12:23:00 5.9 1.0-11.0 (%) Final Eosinophils 03/31/2024 12:23:00 2.8 0.0-6.0 (%) Final Basos 03/31/2024 12:23:00 0.3 0.0-2.0 (%) Final Absolute Segs 03/31/2024 12:23:00 6.33 1.80-7.70 (K/uL) Final Lymphs, absolute 03/31/2024 12:23:00 6.74 Above high normal 1.00-4.80 (K/ul) Final Monos, Abs 03/31/2024 12:23:00 0.84 0.00-1.10 (K/uL) Final Eos, Abs 03/31/2024 12:23:00 0.40 0.00-0.70 (K/uL) Final Basos, Abs 03/31/2024 12:23:00 0.04 0.00-0.20 (K/uL) Final Performing Location [facility] [place] [address]
--- OUTSIDE RECORDS SUMMARY | 2024-04-16 11:52 | External Medical Summary ---
Author Name Unknown Address Unknown Organization K09:[facility] [address] Laboratory Report Ordering Provider Test Date Status MANJEETJULIO CIDRISPAMELA 03/31/2024 12:23:00 Final Observation Date Value Abnormality Reference (Units ) Status Nucleated erythrocytes/100 leukocytes [Ratio] in Blood by Automated count 03/31/2024 12:23:00 Final Variant lymphocytes [Presence] in Blood by Light microscopy 03/31/2024 12:23:00 Present Abnormal None Seen Final Smudge cells [Presence] in Blood by Light microscopy 03/31/2024 12:23:00 Present Abnormal None Seen Final Performing Location [facility] [place] [address]
--- OUTSIDE RECORDS SUMMARY | 2024-04-16 11:52 | External Medical Summary ---
Author Name Unknown Address Unknown Organization K01:[facility] [address] [place] [address] Laboratory Report Ordering Provider Test Date Status ANITA BURROUGHS 03/31/2024 12:23:00 Final Observation Date Value Abnormality Reference (Units ) Status [place] light chains, Free, Serum 03/31/2024 12:23:00 10.93 3.30-19.40 (mg/L) Final Lambda light chains, free, Serum 03/31/2024 12:23:00 10.21 5.71-26.30 (mg/L) Final KAPPA LAMBDA [facility] RATIO 03/31/2024 12:23:00 1.07 0.26-1.65 Final Performing Location [facility] [place] [address]
--- OUTSIDE RECORDS SUMMARY | 2024-04-16 11:52 | External Medical Summary | Summary of Care ---
Author Name Unknown Organization [facility] Address [address] [facility] [address] Phone [phone] Care Team Providers Care Asset Protection Manager Name Role Phone Adrianne Maher PA-C Primary Care Provider [phone] Reason for Visit * Reason Comments Outpatient Testing Encounter Details Date Type Department Care Team (Late st Contact Info) Description 03/31/2024 12:20 PM EST Laboratory Laboratory [facility] [address] [place] [phone] [facility] [address] [place] [address] CLL (chronic lymphocytic leukemia) ([facility]) Allergies Active Allergy Reactions Criticality Noted Date Comments Prochlorperazine 09/12/2000 tightness in throat Sulfa Antibiotics Rash 04/20/1999 documented as of this encounter (statuses as of 03/31/2024) Medications Levothyroxine Sodium 112 MCG Oral Tablet [...] bedtime 42.5 g 3 10/26/19 24 Active Azelastine HCl 0.1 % Nasal Solution (Astelin) Administer 1 [place] into nostril 2 times a day as needed for Rhinitis. Active Famotidine 20 MG Oral Tablet (Pepcid)Indication s:Esophageal dysmotility,Other cough,Dysphagia, unspecified type Take 1 Tablet by mouth in the morning and 1 Tablet before bedtime. 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, bilateral legs 11/13/2022 Uncomplicated asthma 11/13/2022 Diabetes mellitus without complication 3 Mild persistent asthma, uncomplicated 12/20/2020 Prediabetes 04/20/2020 Chronic rhinitis 07/07/2002 Hypothyroidism documented as of this encounter (statuses as of 03/31/2024) Resolved Problems Problem Noted Date Diagnosed Date [...] as of this encounter (statuses as of 03/31/2024) Immunizations Name Administration Dates Next Due COVID-19 mRNA, LNP-s, No Pre serve, 2-Dose Series (Moderna) 02/26/2023,02/02/2022,06/25/2020,05/01 COVID-19, mRNA, LNP-s, PF, B ooster, 100mcg/0.5mg (Moderna) 02/28/2021 PPD 06/27/2006 Pneumococcal Conjugate Vacc, 13 Valent (Prevnar) 03/05/2018 Pneumococcal Polysaccharide PPV23 (Pneumovax) 04/13/2020,03/17/2013 Seasonal Influenza Vac., MDV , IM, 0.5 mL (Fluzone) 03/12/2014,01/15/2013,01/12/2012,01/28,04/11/2010,03/13/2007,03/01/20 06 01/15/2014 Seasonal Influenza, PF, 6 M & above, IM , (FluLaval or Fluzone) 01/14/2020,03/05/2018,02/28/2017 Seasonal Influenza, Quadriva lent Hd (Fluzone Hd) [...] pur e alcohol) PHQ-2 Answer Date Recorded PHQ-2 Score 0 12/10/2018 Utilities Answer Date Recorded Do you have trouble paying y our heating, water, or electric bill? (Adult - for ages 18 years and over) Not on file 10/16/2023 Is your family able to pay t he heat, water, or electric bill? (Household - for ages 0-17 years) Not on file 10/16/2023 Does your family have access to good internet? (Household - for ages 0-17 years) Not on file 10/16/2023 Social Connections Answer Date Recorded How often do you feel lonely or isolated from those around you? (Adult - for ages 18 years and over) Not on file 10/16/2023 Comments No Sex and Gender Information Value Date Recorded Sex Assigned at Not on file Legal Sex Female 5:59 AM EST Gender Identity Not on file Sexual Orientation Not on file Occupation Industry Job Start Date Job End Date Not on file Not on file Not on file Not on file documented as of this encounter Plan of Treatment Upcoming Encounters Date Type Department Care Team (Late st Contact Info) Description 04/02/2024 10:20 AM EST [facility] [address] [phone] Adrianne Maher PA-C [address] [facility] [place] [address] 05/16/2024 11:00 AM EST Office Visit Urogynecology [facility] [address] [place] [address] Diann Dodge PA-C [address] [place] [address] 09/23/2024 11:00 AM EDT Laboratory Laboratory, [place] [address] [phone] [address] [place] [address] 09/29/2024 1:00 PM EDT Office Visit Hematology/Oncology [facility] [place] [address] [place] [phone] Belen Loredo, MD [address] [place] [phone] 11/06/2024 11:20 AM EDT Office Visit [facility] [place] [address] [place] [phone] Adrianne Maher PA-C [address] [place] [address] Pending Results Name Type Priority Associated Diagnoses Date /Time CBC WITH WBC DIFFERENTIAL Lab Routine CLL (chronic lymphocytic leukemia) ([facility]) 03/31/2024 12:23 PM EST COMPREHENSIVE METABOLIC PANEL Lab STAT CLL (chronic lymphocytic leukemia) ([facility]) 03/31/2024 12:23 PM EST IMMUNOGLOBULIN QUANTITATIVE Lab Routine CLL (chronic lymphocytic leukemia) ([facility]) 03/31/2024 12:23 PM EST [id number], SERUM Lab Routine CLL (chronic lymphocytic leukemia) ([facility]) 03/31/2024 12:23 PM EST CBC Lab Routine CLL (chronic lymphocytic leukemia) ([facility]) 03/31/2024 12:23 PM EST DIFFERENTIAL, AUTOMATED Lab Routine CLL (chronic lymphocytic leukemia) ([facility]) 03/31/2024 12:23 PM EST DIFFERENTIAL, TECHNOLOGIST REVIEW Lab Routine CLL (chronic lymphocytic leukemia) ([facility]) 03/31/2024 12:23 PM EST Health Maintenance Due Date Last Done Comments Hepatitis C Screening 1970 Cologuard 1997 Sigmoidoscopy 1997 Adult Wellness Visit 2018 Depression Screening 12/11/2019 12/10/2018 Fecal Occult Blood Test 01/26/2021 01/27/20 20, 03/17/2013, 11/12/1999, Additional history exists Diabetic Foot Exam 12/29/2023 12/28/2022, 1 06/14/2019, 12/10/2018, Additional history exists COVID-19 Vaccine ( season) 2023 02/26/2023, 02/02/2022, 02/28/2021, Additional history exists Influenza Vaccine (FLU shot) (#1) 2023 02/26/2023, 01/03/2022, 01/12/2021, Additional history exists HbA1c 05/07/2024 11/05/2023, 05/01, 11/13/2022, Additional history exists TSH 05/25/2024 05/25/2023, 10/28, 10/27/2021, Additional history exists Mammogram 08/12/2024 08/13/2023, 07/29, 08/09/2022, Additional history exists Albumin/Creatinine Ratio 11/04/2024 024, 05/25/2023, 11/13/2022, Additional history exists GFR 11/04/2024 11/05/2023, 05/01, 11/13/2022, Additional history exists Diabetic Eye Exam 01/24/2025 01/25/2024, , 11/09/2022, Additional history exists DXA Scan 04/29/2026 04/29/2019, 08/24/2008 Colonoscopy 03/10/2030 03/10/2020, 02/28, 03/21/2013, Additional history exists Colorectal Cancer Screening 03/10/2030 DTap/Tdap Vaccines (3 - Td or Tdap) 07/31/2032 07/31/2022, 01/12/2012, 07/19/2004, Additional history exists Zoster Vaccines Completed 04/02/2020, 01/22/2020 Pneumococcal Vaccine: 65+ Years Completed 04/13/2020, 03/05/2018, 03/17/2013 HPV (Gardasil) Vaccine Aged Out No lo nger eligible based on patient's age to complete this topic Hepatitis B Vaccine Aged Out No longe r eligible based on patient's age to complete this topic MENINGOCOCCAL (MENACTRA/MENVEO) Aged Out No longer eligible based on patient's age to complete this topic documented as of this encounter Medical Devices Not on filedocumented as of this encounter Visit Diagnoses Diagnosis CLL (chronic lymphocytic leukemia) (HCC) Chronic lymphoid leukemia, without mention of having achieved remission documented in this encounter Advance Directives Documents on File Type Date Recorded Patient Teacher Of The Deaf Expl anation Advance Directives and Living Will 05/18/2020 ADVANCE DIRECTIVE / LIVING WILL Care Teams Asset Protection Manager Relationship Specialty Start Date End Date Adrianne Maher PA-C [address] [place] [address] PCP - General Physician Distillery Miller Helper 11/12/23 documented as of this encounter
--- OUTSIDE RECORDS SUMMARY | 2024-04-16 11:52 | External Medical Summary | Summary of Care ---
Author Name Unknown Organization [facility] Address [address] [facility] [place] [address] Phone [phone] Care Team Providers Care Sales Architect Name Role Phone Adrianne Maher PA-C Primary Care Provider [phone] Reason for Visit * Reason Comments Outpatient Testing Encounter Details Date Type Department Care Team (Late st Contact Info) Description 04/07/2024 11:40 AM EST Laboratory [facility] [place] [facility] [address] [facility] [place] [address] [place], Laboratory [address] [place] [address] Arrived Allergies Active Allergy Reactions Criticality Noted Date Comments Prochlorperazine 09/12/2000 tightness in throat Sulfa Antibiotics Rash 04/20/1999 documented as of this encounter (statuses as of 04/07/2024) Medications Levothyroxine Sodium 112 MCG Oral Tablet [...] as of this encounter (statuses as of 04/07/2024) Active Problems Problem Noted Date Diagnosed Date CLL (chronic lymphocytic leukemia) 04/02/2024 Other atherosclerosis of patricia cameron arteries of extremities, bilateral legs 11/13/2022 Uncomplicated asthma 11/13/2022 Diabetes mellitus without complication Mild persistent asthma, uncomplicated 12/20/2020 Prediabetes 04/20/2020 Chronic rhinitis 07/07/2002 Hypothyroidism documented as of this encounter (statuses as of 04/07/2024) Resolved Problems Problem Noted Date Diagnosed Date [...] as of this encounter (statuses as of 04/07/2024) Immunizations Name Administration Dates Next Due COVID-19 [...] 05/16/2024 11:00 AM EST Office Visit Urogynecology [facility] [address] [place] [address] Diann Dodge PA-C [address] [place] [address] 09/23/2024 11:00 AM EDT Laboratory Laboratory, [place] [address] [facility] [place] [phone] [place], Laboratory [address] [place] [address] [place] [address] 09/29/2024 1:00 PM EDT Office Visit Hematology/Oncology [facility] [address] [facility] [phone] Belen Loredo MD [address] [place] [phone] 11/06/2024 11:20 AM EDT Office Visit Family Practice, [place] [address] [facility] [place] [phone] Adrianne Maher PA-C [address] [place] [address] Health Maintenance Due Date Last Done Comments Cologuard 1997 Sigmoidoscopy 1997 Adult Wellness Visit 2018 Fecal Occult Blood Test 01/26/2021 01/27/20 20, 03/17/2013, 11/12/1999, Additional history exists COVID-19 Vaccine ( season) 2024 01/30/2024, 02/26/2023, 02/02/2022, Additional history exists Mammogram 08/12/2024 08/13/2023, 07/29, 08/09/2022, Additional history exists HbA1c 09/29/2024 03/31/2024, 0711/2023, 05/25/2023, Additional history exists Albumin/Creatinine Ratio 11/04/2024 [...] Not on filedocumented as of this encounter Advance Directives Documents on File Type Date Recorded Patient Correctional Supervising Cook Expl anation Advance Directives and Living Will 05/18/2020 ADVANCE DIRECTIVE / LIVING WILL Care Teams Sales Architect Relationship Specialty Start Date End Date Adrianne Maher PA-C [address] [facility] [place] [address] PCP - General Physician Harvest Supervisor 11/12/23 documented as of this encounter
--- OUTSIDE RECORDS SUMMARY | 2024-04-16 11:52 | External Medical Summary | Summary of Care ---
Author Name Unknown Organization [facility] Address [address] [facility] [place] [address] Phone [phone] Care Team Providers Care Model And Dye Person Name Role Phone Adrianne Maher PA-C Primary Care Provider +1 -[phone] Reason for Visit * Reason Onset Date Comments Appointment 04/03/2024 Encounter Details Date Type Department Care Team (Late st Contact Info) Description 04/03/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, bilateral legs 11/13/2022 Uncomplicated asthma 11/13/2022 Diabetes mellitus without complication Mild persistent asthma, uncomplicated 12/20/2020 Prediabetes 04/20/2020 Chronic rhinitis 07/07/2002 Hypothyroidism documented as of this encounter (statuses as of 04/04/2024) Resolved Problems Problem Noted Date Diagnosed Date [...] as of this encounter (statuses as of 04/04/2024) Immunizations Name Administration Dates Next Due COVID-19 [...] on file documented as of this encounter Miscellaneous Notes * Telephone Encounter - Pamela Peguero OSA - 04/04/2024 2:51 PM EST Spoke to patient and she refused an appt at on Sunday, Apr 05. She will call Sunday for an appt if she doesn't feel any better. 04/04/2024 * Telephone Encounter - Yoli Mir OSA - 04/03/2024 12:26 PM EST No Appointments Available Patient declined appointments?: No What Visit Type is needed? Acute If Acute Visit Type is needed, were surrounding clinics offered to patient (Yes/No)? Yes Was patient offered appointments with other available providers (Yes/No)? Yes See Call Details? (Yes or No): Yes Sore throat no appetite fatigue and chills documented in this encounter Plan of Treatment Upcoming Encounters Date Type Department Care Team (Late st Contact Info) Description 05/16/2024 11:00 AM EST Office Visit Urogynecology [facility] [address] [place] [address] Diann Dodge PA-C [address] [place] [address] 09/23/2024 11:00 AM EDT Laboratory Laboratory, [place] [facility] [address] [place] [phone] Iliana Moya [address] [place] [address] [place] [address] 09/29/2024 1:00 PM EDT Office Visit Hematology/Oncology [facility] [place] [address] [place] [phone] Belen Loredo MD [address] [place] [address] [place] [address] 11/06/2024 11:20 AM EDT Office [facility] [place] [address] [place] [phone] Adrianne Maher PA-C [address] [place] [address] Health Maintenance Due Date Last Done Comments [...] Documents on File Type Date Recorded Patient Restaurant Cook Expl anation Advance Directives and Living Will 05/18/2020 ADVANCE DIRECTIVE / LIVING WILL Care Teams Model And Dye Person Relationship Specialty Start Date End Date Adrianne Maher PA-C [address] [facility] [place] [address] PCP - General Physician Weigh Tank Operator 11/12/23 documented as of this encounter
--- OUTSIDE RECORDS SUMMARY | 2024-04-16 11:52 | External Medical Summary | Summary of Care ---
Author Name Unknown Organization [facility] Address [address] [place] [address] Phone [phone] Care Team Providers Care School Psychology Specialist Name Role Phone Adrianne Maher PA-C Primary Care Provider +1 [phone] Reason for Visit * Reason Onset Date Comments Advice 03/13/2024 Encounter Details Date Type Department Care Team (Late st Contact Info) Description 03/13/2024 Telephone Access Center, [place] [address] [facility] *DO NOT REMOVE THIS DEPARTMENT* [place] [address] Services, Scheduling [address] [place] [address] Advice Allergies Active Allergy Reactions Criticality Noted Date [...] 0.1 % Nasal Solution (Astelin) Administer 1 [place] into nostril 2 times a day as [...] encounter Miscellaneous Notes * Telephone Encounter - Adrianne Maher PA-C - 03/31/2024 4:38 PM EST See other encounters Adrianne Maher PA-C * Telephone Encounter - Alyse Corbett LPN - 03/20/2024 4:25 PM EST [facility] calling in from [facility]. Beba is faxing most recent lab draw done at [facility] on 03/10 to [phone] NOW. Flow Cytometry Analysis scanned into chart and is irregular (see note below). Labs needed reviewed before pre op appt with Adrianne Maher PA-C on 04/02. they are very concerned for possible cancer. Patient has NOT been made aware of results. Right total shoulder replacement scheduled on 04/16 with . Please review labs HI * Telephone Encounter - Eleni Peralta OSA - 03/13/2024 10:44 AM EST Kathleen with [facility] Orthopedics calling to advise that pt labs came back for her upcoming surgery showing that she has elevated Monocytes with abnormal cytometry flow Not sure if this will change her clearance for her upcoming procedure. documented in this encounter Plan of Treatment Upcoming Encounters Date Type Department Care Team (Late st Contact Info) Description 04/02/2024 10:20 AM EST Office Visit Family [facility] [place] [address] [place] [phone] Adrianne Maher PA-C [address] [place] [address] 05/16/2024 11:00 AM EST Office Visit Urogynecology [facility] [address] [place] [address] Diann Dodge PA-C [address] [place] [address] 09/23/2024 11:00 AM EDT Laboratory Laboratory, [place] [address] [place] [address] [place] [address] [place], Laboratory [address] [place] [address] [place] [address] 09/29/2024 1:00 PM EDT Office Visit Hematology/Oncology [facility] [address] [facility] [phone] Belen Loredo MD [address] [place] [address] [place] [phone] 11/06/2024 11:20 AM EDT Office Visit Family [facility] [place] [phone] Adrianne Maher PA-C [address] [place] [address] Health Maintenance Due Date Last Done Comments [...] 03/31/2024, 07/0 11/2023, 05/25/2023, Additional history exists DXA Scan 04/29/2026 04/29/2019, [...] Documents on File Type Date Recorded 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
--- OUTSIDE RECORDS SUMMARY | 2024-04-16 11:52 | External Medical Summary ---
Author Name Unknown Address Unknown Organization K01:[facility] [place] [address] [facility] [place] [address] Laboratory Report Ordering Provider Test Date Status ANITA BURROUGHS 04/01/2024 10:14:53 Final Observation Date Value Abnormality Reference (Units ) Status Color of Urine by Auto 04/01/2024 10:14:53 Light Yellow Colorless, Light Yellow, Yellow, Dark Yellow Final Clarity, Urine 04/01/2024 10:14:53 Clear Clear Final Glucose [Mass/volume] in Urine by Automated test strip 04/01/2024 10:14:53 Negative Negative (mg/dL) Final Bilirubin.total [Presence] in Urine by Automated test strip 04/01/2024 10:14:53 Negative Negative Final Ketones [Mass/volume] in Urine by Automated test strip 04/01/2024 10:14:53 Negative Negative (mg/dL) Final Specific gravity, Urine 04/01/2024 10:14:53 1.017 1.003-1.030 Final Hemoglobin [Presence] in Urine by Automated test strip 04/01/2024 10:14:53 Negative Negative Final pH, Urine 04/01/2024 10:14:53 5.5 5.0-7.5 (Units) Final Protein [Mass/volume] in Urine by Automated test strip 04/01/2024 10:14:53 Negative Negative (mg/dL) Final Urobilinogen [Mass/volume] in Urine by Automated test strip 04/01/2024 10:14:53 Normal Normal (mg/dL) Final Nitrite [Presence] in Urine by Automated test strip 04/01/2024 10:14:53 Negative Negative Final Leukocyte esterase [Presence] in Urine by Automated test strip 04/01/2024 10:14:53 Moderate Abnormal Negative Final RBC, Urine 04/01/2024 10:14:53 0-2 0-2 (/HPF) Final WBC, Urine 04/01/2024 10:14:53 3-5 Abnormal 0-2 (/HPF) Final Bacteria [#/area] in Urine sediment by Microscopy high power field 04/01/2024 10:14:53 26-50 Abnormal 0-25 (/HPF) Final Calcium oxalate crystals [#/area] in Urine sediment by Microscopy high power field 04/01/2024 10:14:53 5-9 Abnormal None (/HPF) Final Transitional cells [#/area] in Urine sediment by Microscopy high power field 04/01/2024 10:14:53 1-4 Abnormal None (/HPF) Final Performing Location [facility] [address] [facility] [address]
--- OUTSIDE RECORDS SUMMARY | 2024-04-16 11:52 | External Medical Summary | Summary of Care ---
Author Name Unknown Organization [facility] Address [address] [facility] [place] [address] Phone [phone] Care Team Providers Care Clinical Support Specialist Name Role Phone Adrianne Maher PA-C Primary Care Provider +1 [phone] Encounter Details Date Type Department Care Team (Late st Contact Info) Description 03/10/2024 Result Scan Unspecified Department <No scans attached> Allergies Active Allergy Reactions Criticality Noted Date Comments Prochlorperazine 09/12/2000 tightness in throat Sulfa Antibiotics Rash 04/20/1999 documented as of this encounter (statuses as of 03/14/2024) Medications Levothyroxine Sodium 112 MCG Oral Tablet [...] 0.1 % Nasal Solution (Astelin) Administer 1 [place] into nostril 2 times a day as needed for Rhinitis. Active Famotidine 20 MG Oral Tablet (Pepcid)Indication s:Esophageal dysmotility,Other cough,Dysphagia, unspecified type Take 1 Tablet by mouth in the morning and 1 Tablet before bedtime. 180 Tablet 12/24/19 24 Active documented as of this encounter (statuses as of 03/14/2024) Active Problems Problem Noted Date Diagnosed Date Other atherosclerosis of patricia cameron arteries of extremities, bilateral legs 11/13/2022 Uncomplicated asthma 11/13/2022 Diabetes mellitus without complication Mild persistent asthma, uncomplicated 12/20/2020 Prediabetes 04/20/2020 Chronic rhinitis 07/07/2002 Hypothyroidism documented as of this encounter (statuses as of 03/14/2024) Resolved Problems Problem Noted Date Diagnosed Date [...] as of this encounter (statuses as of 03/14/2024) Immunizations Name Administration Dates Next Due COVID-19 [...] Description 04/02/2024 10:20 AM EST [address] [address] Adrianne Maher PA-C [address] [facility] [place] [address] 05/16/2024 11:00 AM EST Office Visit Urogynecology [facility] [address] [facility] [place] [address] Diann Dodge PA-C [address] [facility] [address] 11/06/2024 11:20 AM EDT Office Visit 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
--- OUTSIDE RECORDS SUMMARY | 2024-04-16 11:52 | External Medical Summary ---
Author Name Unknown Address Unknown Organization K01:[facility]ATORY [facility] [place] - [address] [place] [address] Laboratory Report Ordering Provider Test Date Status HERNESTO GONZALEZ 04/07/2024 11:43:49 Final Observation Date Value Abnormality Reference (Units) Status Bacteria identified in Specimen by Culture 04/07/2024 11:43:49 No significant growth Final Test: Culture, Urine, Quanti tative
Specimen Source: Urine, Clean Catch
Specimen Type: Urine
Specimen Date: 04/07/2024 1143
Result Date: 04/08/2024 1643
Result Status: Final result
Resulting Lab: LAB[facility]ATORY [facility]
[address]
[place] [address]

CULTURE

No significant growth

null Performing Location LABORATORY [facility] [place] - [address] [place] [address]
--- OUTSIDE RECORDS SUMMARY | 2024-04-16 11:52 | External Medical Summary ---
Author Name Unknown Address Unknown Organization K01[place] [place] [address] [place] [address] Laboratory Report Ordering Provider Test Date Status CAYLA SOLIS 03/31/2024 12:23:00 Final Observation Date Value Abnormality Reference (Units ) Status TSH 03/31/2024 12:23:00 2.62 0.27-4.20 (uIU/mL) Final Performing Location LABORATORY C - [address] [place] [address]
--- OUTSIDE RECORDS SUMMARY | 2024-04-16 11:52 | External Medical Summary | Summary of Care ---
Author Name Unknown Organization [facility] Address [address] [facility] [address] Phone [phone] Care Team Providers Care Receiver Name Role Phone Adrianne Maher PA-C Primary Care Provider +1 [phone] Reason for Visit * Reason Onset Date Comments Advice 03/21/2024 Provider to prov ider call Encounter Details Date Type Department Care Team ([facility] st Contact Info) Description 03/21/2024 Telephone [facility] [address] [facility] [place] [address] Adrianne Maher PA-C [address] [facility] [place] [address] Advice (Provider to provider call ) Allergies Active Allergy Reactions Criticality Noted Date Comments Prochlorperazine 09/12/2000 tightness in throat Sulfa Antibiotics Rash 04/20/1999 documented as of this encounter (statuses as of 04/02/2024) Medications Levothyroxine Sodium 112 MCG Oral Tablet [...] 0.1 % Nasal Solution (Astelin) Administer 1 [place] into nostril 2 times a day as needed for Rhinitis. 024 Discontin ued(Patie nt preferenc e/discont inuation) documented as of this encounter (statuses as of 04/02/2024) Active Problems Problem Noted Date Diagnosed Date CLL (chronic lymphocytic leukemia) 04/02/2024 Other atherosclerosis of patricia cameron arteries of extremities, bilateral legs 11/13/2022 Uncomplicated asthma 11/13/2022 Diabetes mellitus without complication 3 Mild persistent asthma, uncomplicated 12/20/2020 Prediabetes 04/20/2020 Chronic rhinitis 07/07/2002 Hypothyroidism documented as of this encounter (statuses as of 04/02/2024) Resolved Problems Problem Noted Date Diagnosed Date [...] ase with esophagitis 07/07/2002 03/30/2021 Candidal vulvovaginitis 01/11/2000/09/2017 HEEL PAIN 11/14/1999 03/05/2018 OA (osteoarthritis) of knee 03/30/2021 documented as of this encounter (statuses as of 04/02/2024) Immunizations Name Administration Dates Next Due COVID-19 [...] encounter Miscellaneous Notes * Telephone Encounter - Kailee Ardon LPN - 04/02/2024 11:15 AM EST Appt 04/02 * Telephone Encounter - Adrianne Maher PA-C - 03/25/2024 9:56 AM EST Please get her cbc from [facility] - high priority - Jerryck needs this Adrianne Maher PA-C 03/25/2024 9:56 AM * Telephone Encounter - Adrianne Maher PA-C - 03/25/2024 9:53 AM EST Spoke with [facility] They did discuss with patient Rev case - Dr Mathews is looped in and is going to reach out to hematology to facilitate her being seen He will reach out to Deirdre per our conversation this morning. Adrianne Maher PA-C 03/25/2024 9:54 AM * Telephone Encounter - Adrianne Maher PA-C - 03/24/2024 5:34 PM EST TRC for [facility] Rev case with Dr Migue Maher PA-C 03/24/2024 5:35 PM * Telephone Encounter - Selam Pretty OSA - 03/24/2024 4:13 PM EST Kathleen calling in looking for a call back to Guanaco Henriquez about pt for a hem/onc referral * Telephone Encounter - Zion Quesada OSA - 03/21/2024 10:41 AM EST Guanaco Henriquez PA-C calling and requesting a call back from Adrianne Maher PA-C regarding this patient please * Telephone Encounter - Shawanda Martinez OSA - 03/21/2024 10:05 AM EST Reva is having surgery on 04/16 and has a preop clearance. Is there now. Has some questions for Dr Garces. If he can call back or a nurse valencia at [phone] . Thank you documented in this encounter Plan of Treatment Upcoming Encounters Date Type Department Care Team (Late st Contact Info) Description 05/16/2024 11:00 AM EST Office Visit Urogynecology [facility] [address] [facility] [place] [address] Diann Dodge PA-C [address] [place] [address] 09/23/2024 11:00 AM EDT [facility] [address] [facility] [place] [phone] [place] [address] [place] [address] 09/29/2024 1:00 PM EDT Office Visit Hematology/Oncology Shana Artis [place] [address] [place] [phone] Belen Loredo MD [address] [place] [address] [place] [address] 11/06/2024 11:20 AM EDT Office Visit [facility] [address] [place] [phone] Adrianne Maher PA-C [address] [place] [address] [address] Health Maintenance Due Date Last Done Comments [...] 03/31/2024, 07/0 11/2023, 05/25/2023, Additional history exists Depression Screening 04/02/2025 04/02/2024 [...] Documents on File Type Date Recorded 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
--- OUTSIDE RECORDS SUMMARY | 2024-04-16 11:52 | External Medical Summary | Summary of Care ---
Author Name Unknown Organization [facility] Address [address] [facility] [place] [address] Phone [phone] Care Team Providers Care Edge Stainer Machine Name Role Phone Adrianne Maher PA-C Primary Care Provider +1 -[phone] Reason for Visit * Reason Comments Outpatient Testing Encounter Details Date Type Department Care Team (Late st Contact Info) Description 04/01/2024 10:30 AM EST Laboratory [facility], [place] [facility] [address] [facility] [place] [address] [place], Laboratory [address] [place] [address] Arrived Allergies Active Allergy Reactions Criticality Noted Date Comments Prochlorperazine 09/12/2000 tightness in throat Sulfa Antibiotics Rash 04/20/1999 documented as of this encounter (statuses as of 04/01/2024) Medications Levothyroxine Sodium 112 MCG Oral Tablet [...] 0.1 % Nasal Solution (Astelin) Administer 1 [place] into nostril 2 times a day as needed for Rhinitis. Active Famotidine 20 MG Oral Tablet (Pepcid)Indication s:Esophageal dysmotility,Other cough,Dysphagia, unspecified type Take 1 Tablet by mouth in the morning and 1 Tablet before bedtime. 180 Tablet 12/24/19 24 Active documented as of this encounter (statuses as of 04/01/2024) Active Problems Problem Noted Date Diagnosed Date Other atherosclerosis of patricia cameron arteries of extremities, bilateral legs 11/13/2022 Uncomplicated asthma 11/13/2022 Diabetes mellitus without complication Mild persistent asthma, uncomplicated 12/20/2020 Prediabetes 04/20/2020 Chronic rhinitis 07/07/2002 Hypothyroidism documented as of this encounter (statuses as of 04/01/2024) Resolved Problems Problem Noted Date Diagnosed Date [...] as of this encounter (statuses as of 04/01/2024) Immunizations Name Administration Dates Next Due COVID-19 [...] 04/02/2024 10:20 AM EST [facility] [address] [place] [phone] Adrianne Maher PA-C [address] [place] [address] 05/16/2024 11:00 AM EST Office Visit Urogynecology [facility] [address] [facility] [place] [address] Diann Dodge PA-C [address] [place] [address] 09/23/2024 11:00 AM EDT Laboratory Laboratory, [place] [address] [place] [phone] Iliana Moya [facility] [address] [place] [address] 09/29/2024 1:00 PM EDT Office Visit Hematology/Oncology Shana Artis [place] [address] [facility] [place] [phone] Belen Loredo MD [address] [place] [address] 11/06/2024 11:20 AM EDT Office Visit [facility] [place] [address] [place] [phone] Adrianne Maher PA-C [address] [place] [address] Health Maintenance Due Date Last Done Comments [...] Documents on File Type Date Recorded Patient Monotype Keyboard Operator Expl anation Advance Directives and Living Will 05/18/2020 ADVANCE DIRECTIVE / LIVING WILL Care Teams Edge Stainer Machine Relationship Specialty Start Date End Date Adrianne Maher PA-C [address] [facility] [place] [address] PCP - General Physician Head Of Talent Management 11/12/23 documented as of this encounter
--- OUTSIDE RECORDS SUMMARY | 2024-04-16 11:52 | External Medical Summary | Summary of Care ---
Author Name Unknown Organization [facility] [address] [facility] [address] Phone [phone] Care Team Providers Care Umbrella Frame Maker Name Role Phone Adrianne Maher PA-C Primary Care Provider [phone] Reason for Visit * Reason Comments NEW PATIENT * Evaluate & Treat - Unlimited Visits (Within 3 days (urgent)) - Authorized Specialty Diagnoses / Procedures Referred By Erwin patel Referred To Contact Hematology/Oncology / Hematology Oncology Diagnoses Abnormal CBC Adrianne Maher PA-C [address] [facility] [place] [address] Phone: tel: fax: Referral ID Status Reason Start Date Expiration Date Visits Requested Visits Authorized [id number] Authorized Specialty Services Required [phone] Encounter Details Date Type Department Care Team (Late st Contact Info) Description 03/31/2024 11:00 AM EST Office Visit Hematology/On[facility] [place] [facility] [phone] Belen Loredo MD [address] [facility] [place] [address] CLL (chronic lymphocytic leukemia) ([facility])* Allergies Active Allergy Reactions Criticality Noted Date [...] 0.1 % Nasal Solution (Astelin) Administer 1 [place] into nostril 2 times a day as [...] Sign Reading Time Taken Comments Blood Pressure 110/62 03/31/2024 11:45 AM EST Pulse 56 03/31/2024 11:45 AM EST Temperature 36.2 C (97.2 F) 03/31/2024 11:[address] Respiratory Rate - - Oxygen Saturation 97% 03/31/2024 11:45 AM EST Inhaled Oxygen Concentration - - Weight 64.4 kg (142 lb) 03/31/2024 11:45 AM EST Height 147.3 cm (4' 10") 03/31/2024 11:45 AM EST Body Mass Index 29.68 03/31/2024 11:45 AM EST documented in this encounter Progress Notes * Belen Loredo MD - 03/31/2024 11:47 AM EST Date of visit: 03/31/2024 Subjective Reva Santos is a 73 year old female. Chief Complaint Patient presents with NEW PATIENT HPI: Reav Santos is a 73 year old female presents for Hematology-Oncology consultation due to abnormal CBC. She has had recurrent UTI, most recently on 02/28/2024 found to have large blood, many RBC,WBC clusters in the urine, esterase positive, nitrite negative. Urine culture was found to be negative for growth. She was treated with an antibiotic. She was found to have elevated WBC count as a part of the preanesthesia workup for upcoming shoulder surgery on 04/16/2024. Further testing was performed and Flow cytometry done on 03/10/2024 shows monoclonal B-cell population with immunophenotype typical of CLL for/SLL comprising 62% of the lymphoid cells and is consistent with high count monoclo nal B lymphocytosis. High count MBL has a higher risk of progression to CLL/SLL and low count MBL. And routine/yearly follow up is recommended. High count MBL is similar has similar phenotype ferritin PICC and genetic and molecular features as a Jarvis stage 0 CLL. CD38 is less than sign 30% in which deficiency with favorable prognosis. 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 The 13q14 deletion was seen in 40.5% of the cells and this particular deletion is the most common deletion seen CLL cases in his reported in 10-20% ofconventional cytogenetics 64% by CLL FISH analysis when it is present as sole abnormality, this particular deletion is associated with good prognosis with a median longer survival than CLL with a normal karyotype. The patient denies any systemic symptoms. PMH: Patient Active Problem List Diagnosis Chronic rhinitis Hypothyroidism Prediabetes Mild persistent asthma, uncomplicated Other atherosclerosis of campo arteries of extremities, bilateral legs (HCC) Uncomplicated asthma Diabetes mellitus without complication (HCC) Current Outpatient Medications Medication Sig Dispense Refill Levothyroxine Sodium 112 MCG Oral Tablet (Levoxyl) TAKE 1 TABLET BY MOUTH DAILY AT LEAST 30 MINUTESPRIOR TO FIRST MEAL OF THE DAY OR OTHER MEDICATIONS 100 Tablet 3 Fluticasone-Salmeterol 250-50 MCG/ACT Inhalation Aerosol Powder Breath Activated (Advair Diskus) inhale 1 puff by mouth twice a day 180 Each 3 Estradiol 0.1 MG/GM Vaginal Cream (Estrace) Apply pea sized amount (0.5 gm) vaginally twice a week at bedtime 42.5 g 3 Azelastine HCl 0.1 % Nasal Solution (Astelin) Administer 1 [place] into nostril 2 times a day as needed for Rhinitis. Famotidine 20 MG Oral Tablet (Pepcid) Take 1 Tablet by mouth in the morning and 1 Tablet before bedtime. 180 Tablet 0 No current facility-administered medications for this visit. Review of patient's allergies indicates: Allergen Reactions Prochlorperazine tightness in throat Sulfa Antibiotics Rash Review of Systems Constitutional: Negative. HENT: Negative. Eyes: Negative. Respiratory: Negative. Cardiovascular: Negative. Gastrointestinal: Negative. Endocrine: Negative. Genitourinary: Negative. Skin: Negative. Allergic/Immunologic: Negative. Neurological: Negative. Hematological: Negative. Objective BP 110/62 (BP Site: Left Arm, BP Position: Sitting, BP Cuff Size: Regular) | Pulse 56 | Temp 36.2 C (97.2 F) (Tympanic) | Ht 1.473 m (4' 10") | Wt 64.4 kg (142 lb) | LMP 06/25/2005 | SpO2 97% | BMI 29.68 kg/m | BSA 1.62 m Physical Exam Constitutional: Appearance: Normal appearance. HENT: Head: Normocephalic and atraumatic. Eyes: General: No scleral icterus. Extraocular Movements: Extraocular movements intact. Conjunctiva/sclera: Conjunctivae normal. Pupils: Pupils are equal, round, and reactive to light. Cardiovascular: Rate and Rhythm: Normal rate and regular rhythm. Heart sounds: No murmur heard. Pulmonary: Effort: Pulmonary effort is normal. Breath sounds: Normal breath sounds. Abdominal: General: Abdomen is flat. Bowel sounds are normal. Palpations: Abdomen is soft. Musculoskeletal: Cervical back: Normal range of motion and neck supple. No tenderness. Lymphadenopathy: Cervical: No cervical adenopathy. Skin: Coloration: Skin is not jaundiced or pale. Findings: No bruising. Neurological: General: No focal deficit present. Mental Status: She is alert and oriented to person, place, and time. Psychiatric: Mood and Affect: Mood normal. Behavior: Behavior normal. Thought Content: Thought content normal. Judgment: Judgment normal. ASSESSMENT/PLAN: Stage 0 CLL/ monoclonal B-cell CLUS, asymptomatic patient, incidental finding. CLL (chronic lymphocytic leukemia) (HCC) (Primary) - CBC WITH WBC DIFFERENTIAL; Future; Expected date: 03/31/2024 - COMPREHENSIVE METABOLIC PANEL; Future; Expected date: 03/31/2024 - IMMUNOGLOBULIN QUANTITATIVE; Future; Expected date: 03/31/2024 - [id number], SERUM; Future; Expected date: 03/31/2024 - MONOCLONAL GAMMOPATHIES SCREENING PANEL - URINALYSIS, REFLEX TO MICROSCOPIC; Future; Expected date: 03/31/2024 PLAN OF CARE DISCUSSED WITH PATIENT ON 03/31/2024 : Follow-up: Return in about 6 months (around 09/29/2024). Labs to performed today. I will update you with the results for the end of this week. You do not need any treatment for this condition at this time, however we will continue monitoring every 6 months. You can proceed with right shoulder surgery on 04/16/2024. Return to clinic for follow up in 6 months with blood tests performed 1 week prior to your visit Belen Loredo MD documented in this encounter Nursing Notes * Renee Lopez MED ASSIST - 03/31/2024 11:45 AM EST Patient identifed by name and birthdate Do you have any concerns about pain management for today's visit? Yes. Patient instructed to discuss pain concerns with provider during the visit today Living Will or Advance Directive for Health Care as noted on the problem list. [facility] is a way you can talk to your provider on line through e-mail. Would you like to sign up? I can activate it for you? ALREADY ACTIVE Filed Vitals: 03/31/24 1145 BP: 110/62 Pulse: 56 Temp: 36.2 C (97.2 F) TempSrc: Tympanic SpO2: 97% Weight: 64.4 kg (142 lb) Height: 1.473 m (4' 10") Patient was instructed to not get up on the exam table/exam chair until directed and assisted by their provider; patient is to remain seated in the chair/ wheelchair/ exam table/ exam chair for fall prevention and safety reasons. Patient is aware to have assistance to step down off exam table/exam chair with personnel. Patient voiced full comprehension of instructions. documented in this encounter Plan of Treatment Upcoming Encounters Date Type Department Care Team (Late st Contact Info) Description 04/02/2024 10:20 AM EST Office Visit [facility] [address] [place] [phone] Adrianne Maher PA-C [address] [place] [address] 05/16/2024 11:00 AM EST Office Visit Urogynecology [facility] [address] [place] [address] Diann Dodge PA-C [address] [place] [address] 09/23/2024 11:00 AM EDT Laboratory Laboratory, [facility] [place] [address] [place] [phone] [facility] [address] [place] [address] [place] [address] 09/29/2024 1:00 PM EDT Office Visit Hematology/Oncology [facility] [address] [facility] [phone] Belen Loredo MD [address] [place] [address] [place] [phone] 11/06/2024 11:20 AM EDT Office Visit [facility] [address] [place] [phone] Adrianne Maher PA-C [address] [place] [address] Pending Results Name Type Priority Associated Diagnoses Date /Time CBC WITH WBC DIFFERENTIAL Lab Routine CLL (chronic lymphocytic leukemia) ([facility]) 03/31/2024 12:23 PM EST COMPREHENSIVE METABOLIC PANEL Lab STAT CLL (chronic lymphocytic leukemia) ([facility]) 03/31/2024 12:23 PM EST IMMUNOGLOBULIN QUANTITATIVE Lab Routine CLL (chronic lymphocytic leukemia) ([facility]) 03/31/2024 12:23 PM EST [id number], SERUM Lab Routine CLL (chronic lymphocytic leukemia) ([facility]) 03/31/2024 12:23 PM EST MONOCLONAL GAMMOPATHIES SCREENING PANEL Lab STAT CLL (chronic lymphocytic leukemia) ([facility]) 03/31/2024 12:23 PM EST SERUM PROTEIN ELECTROPHORESIS REFLEX PROFILE Lab STAT CLL (chronic lymphocytic leukemia) ([facility]) 03/31/2024 12:23 PM EST SERUM FREE LIGHT CHAINS Lab STAT CLL (chronic lymphocytic leukemia) ([facility]) 03/31/2024 12:23 PM EST Scheduled Orders Name Type Priority Associated Diagnoses Orde r Schedule CBC WITH WBC DIFFERENTIAL Lab Routine CLL (chronic lymphocytic leukemia) ([facility]) Expected: 03/31/2024, Expires: 03/31/2025 COMPREHENSIVE METABOLIC PANEL Lab STAT CLL (chronic lymphocytic leukemia) ([facility]) Expected: 03/31/2024, Expires: 03/31/2025 IMMUNOGLOBULIN QUANTITATIVE Lab Routine CLL (chronic lymphocytic leukemia) ([facility]) Expected: 03/31/2024, Expires: 03/31/2025 [id number], SERUM Lab Routine CLL (chronic lymphocytic leukemia) ([facility]) Expected: 03/31/2024, Expires: 03/31/2025 URINALYSIS, REFLEX TO MICROSCOPIC Lab Routine CLL (chronic lymphocytic leukemia) ([facility]) Expected: 03/31/2024, Expires: 03/31/2025 Health Maintenance Due Date Last Done Comments [...] Documents on File Type Date Recorded Patient 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
--- OUTSIDE RECORDS SUMMARY | 2024-04-16 11:52 | External Medical Summary | Summary of Care ---
Author Name Unknown Organization [facility] Address [address] [facility] [address] Phone [phone] Care Team Providers Care Patient Financial Advocate Name Role Phone Adrianne Maher PA-C Primary Care Provider [phone] Reason for Visit * Reason Comments Acute Patient is here toda y due to sore throat, headache, sinus drainage, congestion, cough, and pressure in the ears. Patient states she started with symptoms last and is starting to feel better but has a surgery coming up next she wants to make sure she is symptom free by then. Patient has been using nasal spray and OTC medication to help with symptoms. Encounter Details Date Type Department Care Team (Late st Contact Info) Description 04/07/2024 11:00 AM EST Office Visit [facility] [address] [facility] [phone] Zion Garces MD [address] [facility] [place] [address] Abnormal urinalysis* Allergies Active Allergy Reactions Criticality Noted Date [...] Sign Reading Time Taken Comments Blood Pressure 122/82 04/07/2024 10:59 AM EST Pulse 84 04/07/2024 10:59 AM EST Temperature 36.3 C (97.4 F) 04/07/2024 1 0:59 AM EST Respiratory Rate 16 04/07/2024 10:5 9 AM EST Oxygen Saturation 98% 04/07/2024 10: 59 AM EST Inhaled Oxygen Concentration - - Weight 62.5 kg (137 lb 12.8 oz) 024 10:59 AM EST Height 147.3 cm (4' 10") 04/07/2024 10: 59 AM EST Body Mass Index 28.8 04/07/2024 10:59 AM EST documented in this encounter Progress Notes * Zion Garces MD - 04/07/2024 11:09 AM EST Subjective: Reva Santos is a 73 year old female. Chief Complaint Patient presents with Acute Patient is here today due to sore throat, headache, sinus drainage, congestion, cough, and pressurein the ears. Patient states she started with symptoms last and is starting to feel better but has a surgery coming up next she wants to make sure she is symptom free by then. Patient has been using nasal spray and OTC medication to help with symptoms. 73-year-old who is scheduled for shoulder replacement surgery with Dr.- Becker on April 16 seen today because she has developed URI type symptoms beginning 5 days ago. This has included initially sore scratchy throat and since then some moderate head congestion and slight cough. She is not aware of fever. She actually feels a little bit better today in yesterday. Initially there was a good bit of fatigue that is a bit better as well. It should be noted that her pre operative laboratory test showed an elevated white count. She was referred and saw Hematology felt that she had early CLL. They did not recommend any intervention. They ordered some testing (blood work and a urinalysis). They okayed her to have surgery in are not seeing her back again for 6 months. The urine that hematology ordered showed some abnormalities including positive esterase and white blood cells as well as red blood cells. She does not have any urinary symptoms. She did have a urine culture done a monthago which showed no growth Patient Active Problem List Diagnosis Chronic rhinitis Hypothyroidism Prediabetes Mild persistent asthma, uncomplicated Other atherosclerosis of [place] arteries of extremities, bilateral legs (HCC) Uncomplicated asthma Diabetes mellitus without complication (HCC) CLL (chronic lymphocytic leukemia) ([facility]) Current Outpatient Medications Medication Sig Dispense Refill [...] a week at bedtime 42.5 g 3 Famotidine 20 MG Oral Tablet (Pepcid) Take 1 Tablet by mouth in the morning and 1 Tablet before bedtime. 180 Tablet 0 No current facility-administered medications for this visit. Review of patient's allergies indicates: Allergen Reactions Prochlorperazine tightness in throat Sulfa Antibiotics Rash Objective: BP 122/82 (BP Site: Left Arm, BP Position: Sitting, BP Cuff Size: Regular) | Pulse 84 | Temp 97.4 F (36.3 C) (Tympanic) | Resp 16 | Ht 4' 10" (1.473 m) | Wt 137 lb 12.8 oz (62.5 kg) | LMP 06/25/2005 | SpO2 98% | BMI 28.80 kg/m | BSA 1.6 m Physical Exam: CONST: alert, pleasant, no acute distress HEAD: normocephalic, atraumatic Eyes - PERRLA, EOM'I OROPHARYNX: clear, no swelling or erythema, moist CV: regular rate and rhythm, no murmur ASSESSMENT/PLAN: Viral URI-Um I told the patient that I thought that she had viral illness that just needed to run its course. Her surgery is not for another 9 days and I think she will be perfectly fine to proceed with the surgery on the basis of her current URI symptoms. No antibiotic warranted Abnormal urinalysis (Primary)-it is possible that this indicates a back to urea/UTI. Check urine culture and if positive she will need antibiotic treatment before her Orthopedic Surgery. Zion Garces MD documented in this encounter Nursing Notes * Maranda Jones LPN - 04/07/2024 11:02 AM EST The patient has been properly identified by confirmation of name and date of . Chief Complaint Patient presents with Acute Patient is here today due to sore throat, headache, sinus drainage, congestion, cough, and pressurein the ears. Patient states she started with symptoms last and is starting to feel better but has a surgery coming up next she wants to make sure she is symptom free by then. Patient has been using nasal spray and OTC medication to help with symptoms. documented in this encounter Plan of Treatment Upcoming Encounters Date Type Department Care Team (Late st Contact Info) Description 05/16/2024 11:00 AM EST Office Visit Urogynecology [facility] [address] [facility] [place] [address] Diann Dodge PA-C [address] [place] [address] 09/23/2024 11:00 AM EDT Laboratory Laboratory, [facility] [place] [address] [facility] [place] [phone] [facility] [address] [place] [address] [place] [address] 09/29/2024 1:00 PM EDT Office Visit Hematology/On[facility] [place] [address] [facility] [phone] Belen Loredo MD [address] [place] [address] [place] [phone] 11/06/2024 11:20 AM EDT Office Visit [facility] [address] [place] [phone] Adrianne Maher PA-C [address] [place] [address] Pending Results Name Type Priority Associated Diagnoses Date /Time CULTURE, URINE, QUANTITATIVE Lab Routine Abnormal urinalysis 04/07/2024 11:43 AM EST Health Maintenance Due Date Last Done [...] as of this encounter Visit Diagnoses Diagnosis Abnormal urinalysis- Primary Other nonspecific finding on examination of urine documented in this encounter Advance Directives Documents on File Type Date Recorded Patient 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
--- NOTE | 2024-04-16 11:55 | Orthopedic Progress Note ---
Date of Service April 16, 2024 Assessment & Plan Admission and Anticipated Discharge Date Admission Date: April 16, 2024 Orthopedic Progress Note Patient is awake alert. She denies any pain. The block is working well. Wound dressing clean dry and intact. The sling is appropriately positioned. Denies any other problems denies chest pain shortness of breath fever chills nausea vomiting or headache. Vital signs are stable he is afebrile. Neurovascular check limited by block. Postop x-rays look excellent. Assessment doing well continue care pathway. Permitted range of motion passively is 30 degrees of abduction belly to 0 degrees of external rotation no extension forward flexion to 20 to 30 degrees only with arm internally rotated elbow flexion extension full with arm supported wrist and hand function full with arm in sling. She does well overnight discharge tomorrow.
[2024-04-16] MEDS: FLUTICASONE/VILANTEROL 200/25MCG 14 PUFFS/INHALER INH SCH (14:06)
[2024-04-16] MEDS: ACETAMINOPHEN 500 MG TAB PO SCH (14:09)
--- NOTE | 2024-04-16 14:51 | Orthopedic Progress Note ---
Date of Service April 16, 2024 Assessment & Plan Admission and Anticipated Discharge Date Admission Date: April 16, 2024 Orthopedic Progress Note Postop check on the floor. She just feels little fatigue otherwise she is doing well denies chest pain shortness of breath fever chills nausea vomiting or headache. She knows her hand starting to wake up some but still has difficulty moving it fully. I told her that is not the worried it will all return. Vital signs are stable she is afebrile. Wound dressing clean dry and intact. Advised her not to remove the sling. She states she understands. She get up and walk around the floor go to the bathroom etc. but she needs to ask for help. She should not get up by herself she states she understands. Change her AKA tends to BK teds. Prepare for discharge tomorrow she does well overnight.
[2024-04-16] MEDS: ceFAZolin 1000MG 1,000 MG/7.5 ML SYR IV SCH (15:11)
--- NOTE | 2024-04-16 15:34 | Operative Report ---
Post Operative Report Pre & Post Diagnosis Operation Date: 04/16/24 07:00 Pre-Op Diagnosis: Right Shoulder Osteoarthritis Post-Op Diagnosis: Right Shoulder Osteoarthritis I identified the patient and participated in the time-out.: Yes Procedure Operation Date: 04/16/24 07:00 Actual Procedures p Right Total Shoulder Arthroplasty(Right) - Ramos Ochoa MD Surgeon Ramos Ochoa MD Party Plan Sales Consultant Yohannes/Anastasia Estimated Blood Loss 100 Findings Consistent with Post-Op Diagnosis Specimens Bone pathology, Right shoulder Description of Procedure Patient was brought to the operative suite, she underwent anesthesia. Right upper extremity was prepped and draped in the usual sterile fashion. Surgical time out was performed. Patient underwent right total shoulder arthroplasty, see Dr. Ochoa's operative report for full details. I was present and assisted with patient positioning, limb positioning, soft tissue retraction, hardware placement, wound closure, dressing and sling placement. Patient was taken to the recovery room in stable condition. I attest to the content of the Intraoperative Record and any orders documented therein. Any exceptions are noted below.
[2024-04-16] MEDS: FAMOTIDINE 20 MG TAB PO SCH (20:27)
[2024-04-16] MEDS: SENNA 8.6 MG TAB PO SCH (20:27)
[2024-04-16] MEDS: DOCUSATE SODIUM 100 MG CAP PO SCH (20:27)
[2024-04-17] MEDS: LEVOTHYROXINE SODIUM 112 MCG TABLET PO SCH (05:35)
--- NOTE | 2024-04-17 06:34 | Orthopedic Progress Note ---
Date of Service April 17, 2024 Assessment & Plan Admission and Anticipated Discharge Date Admission Date: April 16, 2024 Orthopedic Progress Note Postop day #1 status post right total shoulder replacement. At this point time she is doing well denies any chest pain shortness of breath fever chills nausea vomiting or headache. Vital signs are stable she is afebrile. Neurovascular check reveals block is starting to wear off. She still very comfortable. Still has significant posterior cord deficit. Wound dressing clean dry and intact. Assessment plan to discharge to home today. She can have outpatient dressing change in the office by nursing as PT set up to get things established for range of motion strict range of motion for the next 4 weeks 30 degrees of forward flexion 30 degrees of abduction and rotation from belly to 0 degrees. No external rotation no extension. She can transition the BK teds she does not need AK teds.
[2024-04-17 07:16] LABS: Hematocrit (blood only) 36.4 % (37.0-47.0); Hemoglobin 12.5 g/dl (12.0-16.0); Mean Corpuscular Hgb Conc 34.3 g/dL (32.0-36.0); Mean Corpuscular Volume 93.1 fL (80.0-100.0); Platelet Count 240 K/uL (130-400); RDW Coefficient of Variation 12.5 % (11.5-14.5); RDW Standard Deviation 42.8 fL (36.4-46.3); Red Blood Count 3.91 M/uL (4.20-5.40); White Blood Count 13.42 K/ul (4.8-10.8)
[2024-04-17 07:18] VITALS: BP 108/72; PULSE 77; RESP 16; TEMP 97.5; O2SAT 95
[2024-04-17 07:31] LABS: BUN Creatinine Ratio 17.3 (10-20); Calcium 8.7 mg/dl (8.6-10.3); Creatinine Clr Calc Pharmacy 53.9 ml/min; Potassium 4.1 mmol/L (3.5-5.1)
[2024-04-17] MEDS: dexAMETHasone 4 MG TAB PO SCH (08:11)
[2024-04-17] MEDS: MULTIVITAMIN TAB PO SCH (08:11)
--- NOTE | 2024-04-17 11:17 | Orthopedic Progress Note ---
Date of Service April 17, 2024 Assessment & Plan (1) Status post replacement of right shoulder joint: Plan: The patient was educated regarding today's findings. Conservative care measures were discussed. Dressings were left in place at this time. She will have them changed in the office at noon. Continue with ice, elevation, and use of her sling. Sleeping upright will improve her discomfort should she develop any. Prescription for Percocet was sent to her pharmacy. She has home health scheduled for 2 weeks due to transportation issues. Call with any other concerns. Admission and Anticipated Discharge Date Admission Date: April 16, 2024 Subjective This 73-year-old female is seen today in her room. She is 1 day status post right total shoulder arthroplasty. She states she is doing fine. She is currently sitting in her bedside chair. She is finished breakfast. She has no pain. She is scheduled for physical therapy at the office room. She is already dressed and ready to go. No additional complaints. Review of Systems Review of Systems: Unchanged from yesterday. Physical Exam Physical Exam: General: Well-developed, well-nourished, elderly female, in no acute distress. Sitting in a chair. Alert and oriented. Skin: Warm and dry with good turgor. No rashes. Postsurgical dressing is in place on her right anterior shoulder. There is no bleeding visible through the dressing. No significant ecchymosis or erythema visible under her dressings. Musculoskeletal: The patient has intact motor function of her digits and wrist. Elbow and shoulder motion were not attempted. 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 Neurologic: Gross sensation is intact across each of the digits of the right hand. She states the numbness still mildly blunted. Peripheral pulses are 2+. Results & Data Vital Signs (Past 12 Hours) Vital Signs Temp Pulse Pulse Resp BP Pulse Ox O2 Del Method 04/17/24 07:15 36.4 C L 77 16 108/72 95 Room Air 04/17/24 03:37 36.7 C 82 18 106/62 96 Room Air Laboratory Results CBC obtained this morning shows a white count of 13.4. H&H of 12.5 and 36.4. Platelets normal at 240,000. PRP obtained this morning shows normal sodium and potassium. Chloride very mildly elevated at 109. Normal BUN and creatinine. Glucose this morning was 139.
== END 2024-04-17 10:35 | disposition home health service (06) ==
LOC: PACUINP 05:05 → ASU 05:05 → 3E 12:16
DX: M24.011 Loose body in right shoulder; Z79.899 Other long term (current) drug therapy; Z79.890 Hormone replacement therapy; R73.03 Prediabetes; K21.9 Gastro-esophageal reflux disease without esophagitis; Z88.8 Allergy status to other drugs, medicaments and biological substances; Z88.2 Allergy status to sulfonamides; M19.011 Primary osteoarthritis, right shoulder; R05.3 Chronic cough